=== PATIENT | male | born 1960 | race Caucasian/White ===

== ENCOUNTER → 2018-04-19 15:34 | Outpatient (CLI) | payer OTHER, SELFPAY ==
[2018-04-19 16:54] LABS: Absolute Lymphocyte Count 1.84 X10^3/ul (0.83-4.51); Absolute Neutrophil Count 4.1 X10^3/uL (2.0-7.7); Basophil# 0.03 X10^3/uL; Basophil% 0.4 % (0-1); Eosinophil# 0.35 X10^3/uL; Hematocrit 44.1 % (40-54); Hemoglobin 14.9 g/dl (13.0-16.5); Lymphocyte # 1.84 X10^3/ul (4.0); Lymphocyte % 26.4 % (19-41); Mean Corp Hgb Conc 33.8 g/gl (32-36); Mean Corpuscular Hgb 28.8 pg (27.0-32.0); Mean Corpuscular Volume 85.3 fL (80-94); Mean Platelet Vol. 10.4 fl (6.2-12.0); Monocyte# 0.55 X10^3/uL; Monocyte% 7.9 % (0-10); Neutrophil # 4.14 X10^3/uL (2.7-7.7); Neutrophil % 59.4 % (47-70); Platelet Count 271 K/mm3 (150-450); RBC Distribution Width CV 13.4 % (11.6-14.6); RBC Distribution Width SD 41.2 fl (35.1-43.9); Red Blood Count 5.17 M/mm3 (4.6-6.2)
[2018-04-19 17:04] LABS: BUN 16 mg/dL (7-18); Creatinine, Serum 1.09 mg/dL (0.70-1.30); EST Glomerular Filtration Rate 74 mL/min (>60); Glucose 97 mg/dL (74-106)
[2018-04-19 17:05] LABS: AST(SGOT) 22 U/L (15-37); Alanine Aminotransfer ALT/SGPT 37 U/L (16-61); Albumin, Serum 3.7 g/dL (3.2-5.0); Alkaline Phosphatase 97 U/L (45-117); Anion Gap 8 (5-15); BUN/Creat Ratio 14.7 RATIO (10-20); Calcium,Total 8.9 mg/dL (8.5-10.1); Chloride 103 mmol/L (98-107); Est Glom Filt Rate - Afr Amer 90 mL/min (>60); Globulin 3.7 g/dL (2.2-4.2); PSA,Total - Annual Screen 0.79 ng/mL (0.00-4.00); Potassium 3.9 mmol/L (3.5-5.1); Protein, Total 7.4 g/dL (6.4-8.2); Sodium Level 140 mmol/L (136-145); Thyroid Stim Hormone (TSH) 2.38 uIU/mL (0.358-3.74)
[2018-04-19 17:08] LABS: POSITIVE COUNT NO; POSITIVE DIFFERENTIAL NO; POSITIVE MORPHOLOGY NO
[2018-04-21 13:19] LABS: Hep C Antibodies <0.1 s/co ratio (0.0-0.9)
--- OUTSIDE RECORDS SUMMARY | 2018-06-06 00:05 | XMS RPT_ITS ---
:1960 Author Organization [facility] Care Team Providers Name Role Phone Jose Petty Chi Attending Unavailable Jose Petty Chi Primary Care Unavailable PROBLEMS PROBLEMS No Problem Records FoundPROCEDURES PROCEDURES No Procedure Records FoundRESULTS RESULTS COMPREHENSIVE METABOLIC Collected: 04/19/2018 Status: F Source: [facility] 3:35 PM [facility] REPOSITORY TYPE CODE TESTS RESULT OUT OF RANGE REFERENCE UNITS LAB L501.0100 74-106 mg/dL Normal GLU 97 Result Comment: Please note revised GLUCOSE reference range effective 2017. LAB L501.1000 7-18 mg/dL Normal BUN 16 LAB L501.1100 0.70-1.30 mg/dL Normal CREAT,SERUM 1.09 Result Comment: The validity of the calculated GFR AND GFRAA in patients over 70 years has not been determined. Clinical correlation is essential. LAB L501.1110 >60 mL/min Normal EST GFR 74 Result Comment: Non- GFR Calc LAB L501.1115 >60 mL/min Normal EST GFR - AA 90 Result Comment: GFR Calc LAB L501.1300 10-20 RATIO Normal BUN/CRE 14.7 LAB L501.1500 6.4-8.2 g/dL T Normal PROT 7.4 LAB L501.1800 3.2-5.0 g/dL Normal ALB 3.7 LAB L501.1950 2.2-4.2 g/dL Normal GLOB 3.7 LAB L501.2000 0.9-2.4 RATIO Normal A/G 1.0 LAB L501.2200 8.5-10.1 mg/dL CA Normal 8.9 LAB L501.4100 15-37 U/L Normal AST 22 LAB L501.4305 45-117 U/L Normal ALK P 97 LAB L501.4405 16-61 U/L Normal ALT 37 LAB L501.4600 0.20-1.00 mg/dL T Normal BILI 0.30 LAB L501.5300 136-145 mmol/L NA Normal 140 LAB L501.5600 3.5-5.1 mmol/L K Normal 3.9 LAB L501.5900 98-107 mmol/L CL Normal 103 LAB L501.6100 21.0-32.0 mmol/L Normal CO2 29.0 LAB L501.6200 5-15 Normal GAP 8 Performed By: #### L500.4050, L501.9520, L501.9910 #### [facility] [address] [place], [place], [id number] THYROID STIM HORMONE Collected: 04/19/2018 Status: F Source: [facility] ([facility]) 3:35 PM [facility] REPOSITORY TYPE CODE TESTS RESULT OUT OF RANGE REFERENCE UNITS LAB L501.9520 0.358-3.74 uIU/mL Normal TSH 2.38 Performed By: #### L500.4050, L501.9520, L501.9910 #### [facility] [address] [place], [place], [address] PSA,TOTAL - ANNUAL Collected: 04/19/2018 Status: F Source: [facility] SCREEN 3:35 PM [facility] REPOSITORY TYPE CODE TESTS RESULT OUT OF RANGE REFERENCE UNITS LAB L501.9910 0.00-4.00 ng/mL Normal PSA,TOT 0.79 SCREEN Result Comment: This test was performed using the TPSA assay method for the [employer] chemistry system. Values obtained with different assay methods cannot be used interchangably. When changing PSA assays in the course of monitoring a patient, additional sequential testing should be carried out to confirm baseline values. Performed By: #### L500.4050, L501.9520, L501.9910 #### [facility] [address] [place], [place], [id number] CBC W/DIFF, AUTOMATED Collected: 04/19/2018 Status: F Source: [place] 3:35 PM [facility] REPOSITORY TYPE CODE TESTS RESULT OUT OF RANGE REFERENCE UNITS LAB L100.1000 4.4-11.0 K/mm3 Normal WBC 7.0 LAB L100.1200 4.6-6.2 M/mm3 Normal RBC 5.17 LAB L100.1300 13.0-16.5 g/dl Normal HGB 14.9 LAB L100.1400 40-54 % Normal HCT 44.1 LAB L100.1500 80-94 fL Normal MCV 85.3 LAB L100.1600 27.0-32.0 pg Normal MCH 28.8 LAB L100.1700 32-36 g/gl Normal MCHC 33.8 LAB L100.1810 11.6-14.6 % Normal RDW CV 13.4 LAB L100.1820 35.1-43.9 fl Normal RDW SD 41.2 LAB L100.1900 150-450 K/mm3 Normal PLT 271 LAB L100.2000 6.2-12.0 fl Normal MPV 10.4 LAB L100.2100 47-70 % Normal NEUT% 59.4 LAB L100.2200 19-41 % Normal LY% 26.4 LAB L100.2300 0-10 % Normal MONO% 7.9 LAB L100.2400 0-5 % Normal EO% 5.0 LAB L100.2500 0-1 % Normal BASO% 0.4 LAB L100.2550 0.0-0.9 % Normal IM GRAN % 0.900 Result Comment: IG% - Immature Granulocytes (promyelocytes, myelocytes and metamyelocytes) > 1% indicates that a LEFT SHIFT is Present. LAB L100.2620 2.0-7.7 X10 3/uL Normal Absolute Neut 4.1 LAB L100.2720 0.83-4.51 X10 3/ul Normal Absolute Lymph 1.84 Performed By: #### L100.0100 #### [facility] [address] [place], [place], [id number] HEPATITIS C ANTIBODIES Collected: 04/19/2018 Status: F Source: [place] 3:35 PM [facility] REPOSITORY TYPE CODE TESTS RESULT OUT OF RANGE REFERENCE UNITS LAB L3100.0650 0.0-0.9 s/co ratio Normal HEP C AB <0.1 Result Comment: Negative: < 0.8 Indeterminate: 0.8 - 0.9 Positive: > 0.9 The CDC recommends that a positive HCV antibody result be followed up with a HCV Nucleic Acid Amplification test (344032). Performed at: - [facility] [id number] Therapeutic Mentor: Wolf Miles PhD, Phone: [phone] Performed By: #### L3100.0625 #### [facility] (refer to report for specific site) refer to report for address and phone number ALLERGIES ALLERGIES No Allergies Records FoundENCOUNTERS ENCOUNTERS ADMIT/DISCHARGE ACCOUNT ADMITTING ENCOUNTER LOCATION SOURCE NUMBER CLASS 04/19/2018 [id number] [facility] [place] [facility] [address] [place] [address] ing:POLAB3 Repository PAYERS PAYERS ENCOUNTER GUARANTOR PAYER SUBSCRIBER SOURCE 04/19/2018 CHENTE [id number] Primary CHENTE FELIZ: Talia TR Insurance:Sabiha [id number] [address], Number: [facility] [address]Ubn: [id number] Repository ve Date:1749-15-45RB [facility] [address] [address]OO: 04/19/2018 Secondary NOT GIVENUNK Talia Insurance:SELF PAY [facility] Number: Effective Repository Date:2018-04-19
== END ==
PROVIDERS: Family Provider Family Medicine Geriatric Medicine; PCP Family Medicine Geriatric Medicine; Visit Provider Family Medicine Geriatric Medicine
DX: Z00.00 Encounter for general adult medical examination without abnormal findings (principal); Z12.5 Encounter for screening for malignant neoplasm of prostate; Z13.89 Encounter for screening for other disorder
CPT/HCPCS: 36415; 80053; 84153; 84443; 85025; 86803; G0103

== ENCOUNTER 2018-10-22 21:52 | Emergency (ER) | payer OTHER, SELFPAY ==
[2018-10-22 21:53] VITALS: BP 157/91; PULSE 90; RESP 14; TEMP 36.5; O2SAT 94; BMI 26.9
--- NOTE | 2018-10-22 22:03 | ED.VISSUMM ---
- ER Visit Summary Date of Service: 10/22/18 Chief Complaint: Esophageal foreign body suspected chicken stuck in his throat History of Present Illness: The patient is a 58 M dates he was eating chicken tonight. He ate a piece said he felt fine drank a beer. He did some other things at home. He ate a second piece of chicken and he said that got stuck. He has thrown up some pieces of meat but believes it still stuck. To be drinks water it will stay down for about a minute and he throws it back up. He denies any pain. No trouble breathing. He has had a prior episode of the meat esophageal bolus that had to be previously removed. He is never needed esophageal dilatation. He denies any other illness. Physical Examination: Well-appearing middle-aged male. Vital signs are stable afebrile. HEENT exam unremarkable. Posterior pharynx normal. He is able to handle his own secretions. Neck nontender. Trachea midline. No lymphadenopathy. Lungs clear to auscultation bilaterally. Heart regular rate and rhythm no murmur. Abdomen soft and nontender. Patient is moving all 4 extremities. He is awake alert with no focal motor deficits. No distress. Test Results: None Emergency Department Course and Treatment: Patient is unable to hold water down. Dr.Rich Leon on-call for general surgery will be consulted. Patient be consciously sedated in the emergency department with propofol and Dr. Leon can do the upper endoscopy. Awaiting endoscopy team patient be turned over to the overnight physician. Treatment Plan: Patient will be observed after his upper endoscopy and once his conscious sedation is wearing off and he is doing well he will be discharged home. Disposition: Discharge Impression: Acute esophageal impaction secondary to chicken Conscious sedation by ER physician using propofol Upper endoscopy done by Dr. Leon of general surgery. This note was generated with [employer] dictation software. It may contain incorrect words, spelling, and punctuation that were not noted in review of the chart prior to signing ED Disposition - Plan for ED Patient: Disposition: Home or Assisted Living Instructions: ED Foreign Body Esophageal Rslv Referrals: Jc Leon MD [STAFF PHYSICIAN] - As Needed Jose Petty Chi, MD [Primary Care Provider] - As Needed Additional Instructions: Catch her meat up into small pieces and chew it thoroughly. : Follow-up with Dr. Leon the general surgeon from the [facility] in [place] that did your upper endoscopy tonight.
--- NOTE | 2018-10-22 22:07 | ED.DCSUM_ITS ---
- ER Visit Summary Date of Service: 10/22/18 Chief Complaint: Esophageal foreign body suspected chicken stuck in his throat History of Present Illness: The patient is a 58 M dates he was eating chicken tonight. He ate a piece said he felt fine drank a beer. He did some other things at home. He ate a second piece of chicken and he said that got stuck. He has thrown up some pieces of meat but believes it still stuck. To be drinks water it will stay down for about a minute and he throws it back up. He denies any pain. No trouble breathing. He has had a prior episode of the meat esophageal bolus that had to be previously removed. He is never needed esophageal dilatation. He denies any other illness. Physical Examination: Well-appearing middle-aged male. Vital signs are stable afebrile. HEENT exam unremarkable. Posterior pharynx normal. He is able to handle his own secretions. Neck nontender. Trachea midline. No lymphadenopathy. Lungs clear to auscultation bilaterally. Heart regular rate and rhythm no murmur. Abdomen soft and nontender. Patient is moving all 4 extremities. He is awake alert with no focal motor deficits. No distress. Test Results: None Emergency Department Course and Treatment: Patient is unable to hold water down. Dr.Rich Leon on-call for general surgery will be consulted. Patient be consciously sedated in the emergency department with propofol and Dr. Leon can do the upper endoscopy. Awaiting endoscopy team patient be turned over to the overnight physician. Treatment Plan: Patient will be observed after his upper endoscopy and once his conscious sedation is wearing off and he is doing well he will be discharged home. Disposition: Discharge Impression: Acute esophageal impaction secondary to chicken Conscious sedation by ER physician using propofol Upper endoscopy done by Dr. Leon of general surgery. This note was generated with [employer] dictation software. It may contain incorrect words, spelling, and punctuation that were not noted in review of the chart prior to signing ED Disposition - Plan for ED Patient: Disposition: Home or Assisted Living Instructions: ED Foreign Body Esophageal Rslv Referrals: Jc Leon MD [STAFF PHYSICIAN] - As Needed Jose Petty Chi, MD [Primary Care Provider] - As Needed Additional Instructions: Catch her meat up into small pieces and chew it thoroughly. : Follow-up with Dr. Leon the general surgeon from the [facility] in [place] that did your upper endoscopy tonight.
--- NOTE | 2018-10-22 22:08 | DCINST.ED_ITS ---
ED Disposition - Plan for ED Patient: Disposition: Home or Assisted Living Instructions: ED Foreign Body Esophageal Rslv Referrals: Jose Petty Chi, MD [Primary Care Provider] - As Needed Jc Leon MD [STAFF PHYSICIAN] - As Needed Additional Instructions: Catch her meat up into small pieces and chew it thoroughly. : Follow-up with Dr. Leon the general surgeon from the [place] in [place] that did your upper endoscopy tonight.
[2018-10-22 23:06] VITALS: BP 143/86; PULSE 94; RESP 14; O2SAT 98
[2018-10-22] MEDS: Propofol 200 MG/20 ML Vial 40 MG IV BOLUS (23:48)
[2018-10-22 23:52] VITALS: BP 143/84; BP 143/86; PULSE 108; PULSE 90; RESP 16; RESP 18; RESP 19; RESP 25; O2SAT 95; O2SAT 97; O2SAT 99
[2018-10-23 00:03] VITALS: BP 128/74; PULSE 89; RESP 1; O2SAT 94
--- NOTE | 2018-10-23 00:06 | OP.ENDO_ITS ---
10/23/2018 Jose Petty MD [address] [place] [address] Re : Upper GI endoscopy procedure for Efren Stevens Dear Dr. Petty This procedure was performed on Monday, October 22, 2018. My impressions and recommendations are as follows: Impressions : - Food in the lower third of the esophagus. Removal was successful. - Normal stomach. - Esophageal mucosal changes were present, including erythema. Findings are suggestive of reflux inflammation. Recommendations : - Discharge patient to home. - Continue present medications. My findings are described in the full procedure note, which is enclosed. If I can be of further assistance, please feel free to contact me at Doctor phone number(s): , Work: . Sincerely, Jc Leon MD 10/23/2018 12:05:58 AM This report has been signed electronically.
--- NOTE | 2018-10-23 00:18 | DCINST.ED_ITS ---
ED Disposition - Plan for ED Patient: Disposition: Home or Assisted Living Instructions: ED Foreign Body Esophageal Rslv Referrals: Jose Petty Chi, MD [Primary Care Provider] - As Needed Jc eLon MD [STAFF PHYSICIAN] - 1 Week Additional Instructions: Catch your meat up into small pieces and chew it thoroughly. Eat a clear liquid diet for the next 2 days. Do not eat any solid foods for the next 2 days. : Follow-up in one week with Dr. Leon, the general surgeon from the [facility] in [place] that did your upper endoscopy tonight.
[2018-10-23 00:19] VITALS: BP 116/73; O2SAT 93
[2018-10-23 00:20] VITALS: BP 116/73; PULSE 80; RESP 17; O2SAT 94
--- NOTE | 2018-10-23 09:02 | PCM.CONS.GEN ---
Reason for Consult Date of Consultation: 10/22/18 Reason for Consultation: esophageal foreign body History of Present Illness: The patient is a 58 year old M presents with a piece of chicken stuck in his throat. He's had multiple previous esophageal foreign bodies removed endoscopically. He states he has a hiatal hernia. He notes no previous history of esophageal dilatation. He does not seem to undergone endoscopy except during periods with esophageal foreign body. This esophageal foreign body and present for the past 3+ hours. He is coughing and spitting up saliva but having no respiratory difficulties. Past Medical History Allergies No Known Allergies Allergy (Verified 10/22/18 21:53) Home Medications: Ambulatory Orders Medication Instructions Recorded NK 10/22/18 Smoking Status: Never smoker Review of Systems Unable to obtain accurate/complete ROS d/t: patient discomfort - Physical Exam General: Alert, Oriented x3, Cooperative Lungs: Clear to auscultation, Normal air movement Cardiovascular: Regular rate, Regular Rhythm Abdomen: Bowel Sounds Present, Soft, Non Tender Vital Signs Temp Pulse Resp BP Pulse Ox 97.7 F L 80 17 116/73 94 10/22/18 21:53 10/23/18 00:20 10/23/18 00:20 10/23/18 00:20 10/23/18 00:20 Oxygen Delivery Method [3] Nasal Cannula Oxygen Delivery Method [1 ( Nasal Cannula Initial Baseline)] Oxygen Delivery Method Room Air Weight: 89.9 kg Body Mass Index (BMI) 26.9 Assessment/Plan after removal of esophageal foreign body-the patient was instructed to maintain on clear liquids for the next 2-3 days. He is to follow-up in my office at which point we will schedule follow-up upper endoscopy to assess for esophagitis or melena is and biopsies to evaluate for eosinophilic esophagitis.
== END 2018-10-23 00:29 | disposition home or self-care (01) ==
PROVIDERS: Surgery; Emergency Provider Emergency Medicine; Family Provider Family Medicine Geriatric Medicine; PCP Family Medicine Geriatric Medicine
PROC: 0DJ08ZZ Inspection of Upper Intestinal Tract, Via Natural or Artificial Opening Endoscopic (ICD-10-PCS; CPT 43235; principal; 2018-10-22 23:00)
DX: T18.128A Food in esophagus causing other injury, initial encounter (principal)
CPT/HCPCS: 43247; 96374; 99285; J7030; A4216

== ENCOUNTER → 2019-04-21 16:26 | Outpatient (CLI) | payer OTHER, SELFPAY ==
[2019-04-21 17:30] LABS: Absolute Lymphocyte Count 1.62 X10^3/uL (0.83-4.51); Absolute Neutrophil Count 4.6 X10^3/uL (2.0-7.7); Basophil# 0.04 X10^3/uL; Basophil% 0.6 % (0-1); Eosinophil# 0.23 X10^3/uL; Eosinophils% 3.3 % (0-5); Hematocrit 44.3 % (40-54); Hemoglobin 14.7 g/dL (13.0-16.5); Lymphocyte # 1.62 X10^3/ul (4.0); Mean Corp Hgb Conc 33.2 g/dL (32-36); Mean Corpuscular Hgb 28.8 pg (27.0-32.0); Mean Corpuscular Volume 86.7 fL (80-94); Mean Platelet Vol. 10.1 fl (6.2-12.0); Monocyte# 0.51 X10^3/uL; Monocyte% 7.2 % (0-10); NRBC Flagged by Analyzer 0 % (0-5); Neutrophil # 4.59 X10^3/uL (2.7-7.7); Platelet Count 234 K/mm3 (150-450); RBC Distribution Width CV 12.6 % (11.6-14.6); RBC Distribution Width SD 39.9 fl (35.1-43.9); Red Blood Count 5.11 M/mm3 (4.6-6.2); White Blood Count 7.1 K/mm3 (4.4-11.0)
[2019-04-21 18:20] LABS: ALB/GLOB Ratio 1.2 RATIO (0.9-2.4); AST(SGOT) 19 U/L (15-37); Alanine Aminotransfer ALT/SGPT 35 U/L (16-61); Albumin, Serum 3.8 g/dL (3.2-5.0); Alkaline Phosphatase 81 U/L (45-117); Anion Gap 5 (5-15); BUN 16 mg/dL (7-18); BUN/Creat Ratio 14.7 RATIO (10-20); Calcium,Total 8.6 mg/dL (8.5-10.1); Chloride 105 mmol/L (98-107); Creatinine, Serum 1.09 mg/dL (0.70-1.30); EST Glomerular Filtration Rate 74 mL/min (>60); Est Glom Filt Rate - Afr Amer 89 mL/min (>60); Globulin 3.2 g/dL (2.2-4.2); Glucose 80 mg/dL (74-106); PSA,Total - Annual Screen 0.89 ng/mL (0.00-4.00); Potassium 3.9 mmol/L (3.5-5.1); Sodium Level 139 mmol/L (136-145); Thyroid Stim Hormone (TSH) 1.64 uIU/mL (0.358-3.74)
[2019-04-21 18:54] LABS: Vitamin D,25 Hydroxy 19.6 ng/mL (29.95-100.01)
== END ==
PROVIDERS: Family Provider Family Medicine Geriatric Medicine; PCP Family Medicine Geriatric Medicine; Visit Provider Family Medicine Geriatric Medicine
DX: I10 Essential (primary) hypertension (principal); E55.9 Vitamin D deficiency, unspecified
CPT/HCPCS: 36415; 80053; 82306; 84153; 84443; 85025; G0103

== ENCOUNTER → 2020-04-30 15:31 | Outpatient (CLI) | payer OTHER, SELFPAY ==
[2020-04-30 17:19] LABS: Absolute Lymphocyte Count 1.74 X10^3/uL (0.83-4.51); Absolute Neutrophil Count 5.5 X10^3/uL (2.0-7.7); Basophil# 0.03 X10^3/uL; Basophil% 0.4 % (0-1); Eosinophil# 0.17 X10^3/uL; Eosinophils% 2.1 % (0-5); Hematocrit 46.8 % (40-54); Hemoglobin 15.5 g/dL (13.0-16.5); Lymphocyte # 1.74 X10^3/ul (4.0); Lymphocyte % 21.7 % (19-41); Mean Corp Hgb Conc 33.1 g/dL (32-36); Mean Corpuscular Hgb 28.8 pg (27.0-32.0); Mean Corpuscular Volume 86.8 fL (80-94); Mean Platelet Vol. 10.2 fl (6.2-12.0); Monocyte# 0.55 X10^3/uL; Monocyte% 6.8 % (0-10); NRBC Flagged by Analyzer 0 % (0-5); Neutrophil # 5.48 X10^3/uL (2.7-7.7); Neutrophil % 68.3 % (47-70); Platelet Count 261 K/mm3 (150-450); RBC Distribution Width CV 12.5 % (11.6-14.6); RBC Distribution Width SD 39.7 fl (35.1-43.9); Red Blood Count 5.39 M/mm3 (4.6-6.2)
[2020-04-30 17:45] LABS: ALB/GLOB Ratio 1.2 RATIO (0.9-2.4); AST(SGOT) 20 U/L (15-37); Alanine Aminotransfer ALT/SGPT 32 U/L (16-61); Albumin, Serum 4.1 g/dL (3.2-5.0); Alkaline Phosphatase 77 U/L (45-117); Anion Gap 9 (5-15); BUN 17 mg/dL (7-18); Calcium,Total 9.3 mg/dL (8.5-10.1); Chloride 104 mmol/L (98-107); Creatinine, Serum 1.13 mg/dL (0.70-1.30); EST Glomerular Filtration Rate 71 mL/min (>60); Est Glom Filt Rate - Afr Amer 85 mL/min (>60); Globulin 3.3 g/dL (2.2-4.2); Glucose 83 mg/dL (74-106); PSA,Total - Annual Screen 1.46 ng/mL (0.00-4.00); Potassium 4.2 mmol/L (3.5-5.1); Protein, Total 7.4 g/dL (6.4-8.2); Sodium Level 140 mmol/L (136-145); Thyroid Stim Hormone (TSH) 3.35 uIU/mL (0.358-3.74)
== END ==
PROVIDERS: PCP Family Medicine Geriatric Medicine; Visit Provider Family Medicine Geriatric Medicine
DX: I10 Essential (primary) hypertension (principal); Z12.5 Encounter for screening for malignant neoplasm of prostate
CPT/HCPCS: 36415; 80053; 84153; 84443; 85025; G0103

== ENCOUNTER → 2021-05-02 15:21 | Outpatient (CLI) | payer OTHER, SELFPAY ==
[2021-05-02 16:10] LABS: Absolute Lymphocyte Count 1.49 X10^3/uL (0.83-4.51); Basophil# 0.03 X10^3/uL; Basophil% 0.4 % (0-1); Eosinophil# 0.24 X10^3/uL; Eosinophils% 2.9 % (0-5); Hematocrit 45.2 % (40-54); Hemoglobin 15.6 g/dL (13.0-16.5); Lymphocyte # 1.49 X10^3/ul (0.83-4.51); Lymphocyte % 18.1 % (19-41); Mean Corp Hgb Conc 34.5 g/dL (32-36); Mean Corpuscular Hgb 29.4 pg (27.0-32.0); Mean Corpuscular Volume 85.3 fL (80-94); Mean Platelet Vol. 10.1 fl (6.2-12.0); Monocyte# 0.46 X10^3/uL; Monocyte% 5.6 % (0-10); NRBC Flagged by Analyzer 0 % (0-5); Neutrophil # 5.96 X10^3/uL (2.7-7.7); Neutrophil % 72.4 % (47-70); Platelet Count 244 K/mm3 (150-450); RBC Distribution Width CV 12.6 % (11.6-14.6); RBC Distribution Width SD 39.1 fl (35.1-43.9); White Blood Count 8.2 K/mm3 (4.4-11.0)
[2021-05-02 16:40] LABS: ALB/GLOB Ratio 1.1 RATIO (0.9-2.4); AST(SGOT) 17 U/L (15-37); Alanine Aminotransfer ALT/SGPT 37 U/L (16-61); Albumin, Serum 3.9 g/dL (3.2-5.0); Alkaline Phosphatase 90 U/L (45-117); Anion Gap 11 (5-15); BUN 16 mg/dL (7-18); BUN/Creat Ratio 14.5 RATIO (10-20); Calcium,Total 8.7 mg/dL (8.5-10.1); Chloride 102 mmol/L (98-107); EST Glomerular Filtration Rate 73 mL/min (>60); Est Glom Filt Rate - Afr Amer 88 mL/min (>60); Globulin 3.5 g/dL (2.2-4.2); Glucose 106 mg/dL (74-106); PSA,Total - Annual Screen 1.19 ng/mL (0.00-4.00); Potassium 3.6 mmol/L (3.5-5.1); Protein, Total 7.4 g/dL (6.4-8.2); Sodium Level 141 mmol/L (136-145); Thyroid Stim Hormone (TSH) 1.57 uIU/mL (0.358-3.74)
== END ==
PROVIDERS: PCP Family Medicine Geriatric Medicine; Visit Provider Family Medicine Geriatric Medicine
DX: Z00.00 Encounter for general adult medical examination without abnormal findings (principal); I10 Essential (primary) hypertension; Z12.5 Encounter for screening for malignant neoplasm of prostate
CPT/HCPCS: 36415; 80053; 84153; 84443; 85025; G0103

== ENCOUNTER 2021-09-22 13:06 | Emergency (ER) | payer OTHER, SELFPAY ==
[2021-09-22 13:08] VITALS: BP 161/84; PULSE 98; RESP 18; TEMP 36.6; O2SAT 97; BMI 27.1
--- NOTE | 2021-09-22 13:27 | ED.VIS.GI ---
HPI HPI - GI History of Present Illness Chief Complaint: Foreign Body Narrative Narrative: 61-year-old male who denies significant past medical history except for previous esophageal foreign bodies, presents with a feeling that food is stuck in his distal esophagus. It has been that way for the last 3 hours. He states that he went to visit his in a half-way, went to [employer], then drove through [employer] and was in a hurry, and feels like part of his sausage McMuffin is caught in his distal esophagus. He states this is happened to him previously, the last time being 3 to 4 months ago with resolution by itself. 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 While he denies that he had any esophageal stricture or esophageal web, he thought that they had diagnosed him with esophagitis. He presents because he states whenever he drinks a capful of water, it comes back up. PFSH PFSH Medical History no medical history Home Medications NK 10/22/18 [History Last Taken Unknown] Allergy/AdvReac Type Severity Reaction Status Date / Time No Known Allergies Allergy Verified 09/22/21 13:09 Social History Smoking Status: Never smoker ROS ROS ED ROS Narrative Constitutional: No fever, no chills. HEENT: No sore throat. No neck pain. No loss of vision. No rhinorrhea. Esophageal foreign body, distal, feeling of food impaction. Cardiovascular: No chest pain. No palpitations. No pedal edema. Respiratory: No cough, no shortness of breath. Abdominal: No abdominal pain. No nausea. No vomiting. Genitourinary: No dysuria. No hematuria. Musculoskeletal: No myalgias. No arthralgias. Neurologic: No headaches. No dizziness. No lightheadedness. Skin: No rash. No change in color. Psychiatric: No depression. No anxiety. EXAM Physical Exam Narrative Exam Narrative: Afebrile. Vital signs noted. HEENT: Normocephalic. Atraumatic. PERRL, EOMI. Neck soft and supple. No point tenderness or step off. Airway patent. No drooling or trismus. Cardiovascular: Regular rate and rhythm. No murmurs, rubs, or gallops appreciated. Respiratory: No tachypnea. Lungs clear to auscultation bilaterally. Gastrointestinal: Abdomen soft, nontender, with normoactive bowel sounds. No rebound or guarding. Neurological: Awake. Alert. Nonfocal, nonlateralizing. Skin: No rash. Normal color. No pallor. Musculoskeletal: No pedal edema. Full range of motion extremities. Const Vital Signs: 09/22/21 13:08 09/22/21 13:15 Temperature 98 F Temperature Source Temporal Pulse Rate 98 Respiratory Rate 18 Respiratory Effort Normal Non-Labored Blood Pressure 161/84 H Blood Pressure Mean 109 Pulse Ox 97 Oxygen Delivery Method Room Air MDM MDM MDM Narrative Medical decision making narrative: Upon initial history and physical taking, patient states that his foreign body sensation has resolved. He was able to drink half a bottle of water at the bedside, with an additional cup. As he states that this is happening every 3 to 4 months, usually when he does not chew as well, he was instructed to start a soft food diet and advance as tolerated and to always chew his food thoroughly. He was given the number to Dr. Harrison excellence consultant for gastroenterology for outpatient endoscopy. At this point in time, as his foreign body of the esophagus has resolved, I feel he can be discharged safely home. Return instructions reviewed. Disposition is discharged home in stable condition. Discharge Plan Triage Chief Complaint: Foreign Body ED Provider: Matthew Peguero Dx/Rx/DC Orders Clinical Impression: Foreign body in esophagus, Dysphagia Instructions: ED Soft Diet, ED Esophageal Foreign Body, Resolved, ED Dysphagia (Adult) Prescriptions: No Action NK RF: 0 Primary Care Provider: Jose Petty Chi Referrals: Figueroa Harrison DO [STAFF PHYSICIAN] - As soon as possible Jose Petty Chi, MD [Primary Care Provider] - Disposition Disposition: Home, Self Care
== END 2021-09-22 13:45 | disposition home or self-care (01) ==
PROVIDERS: Emergency Provider Emergency Medicine; PCP Family Medicine Geriatric Medicine; Visit Provider Emergency Medicine
DX: T18.108A Unspecified foreign body in esophagus causing other injury, initial encounter (principal); R13.10 Dysphagia, unspecified
CPT/HCPCS: 99282

== ENCOUNTER → 2022-05-07 | Outpatient (CLI) | payer OTHER, SELFPAY ==
[2022-05-07 17:29] LABS: Absolute Lymphocyte Count 1.43 X10^3/uL (0.83-4.51); Absolute Neutrophil Count 3.1 X10^3/uL (2.0-7.7); Basophil# 0.03 X10^3/uL; Basophil% 0.5 % (0-1); Eosinophil# 0.15 X10^3/uL; Eosinophils% 2.7 % (0-5); Hemoglobin 15.2 g/dL (13.0-16.5); Lymphocyte # 1.43 X10^3/ul (0.83-4.51); Lymphocyte % 25.8 % (19-41); Mean Corp Hgb Conc 34.5 g/dL (32-36); Mean Corpuscular Hgb 29.8 pg (27.0-32.0); Mean Corpuscular Volume 86.3 fL (80-94); Monocyte# 0.78 X10^3/uL; Monocyte% 14.1 % (0-10); NRBC Flagged by Analyzer 0 % (0-5); Neutrophil # 3.14 X10^3/uL (2.7-7.7); Neutrophil % 56.5 % (47-70); Platelet Count 210 K/mm3 (150-450); RBC Distribution Width CV 12.8 % (11.6-14.6); RBC Distribution Width SD 40.2 fl (35.1-43.9); White Blood Count 5.6 K/mm3 (4.4-11.0)
[2022-05-07 17:51] LABS: Vitamin D,25 Hydroxy 26.4 ng/mL
[2022-05-07 18:01] LABS: AST(SGOT) 20 U/L (15-37); Alanine Aminotransfer ALT/SGPT 43 U/L (16-61); Albumin, Serum 3.6 g/dL (3.2-5.0); Alkaline Phosphatase 76 U/L (45-117); Anion Gap 4 (5-15); BUN 12 mg/dL (7-18); BUN/Creat Ratio 10.7 RATIO (10-20); Calcium,Total 8.7 mg/dL (8.5-10.1); Chloride 103 mmol/L (98-107); Creatinine, Serum 1.12 mg/dL (0.70-1.30); EST Glomerular Filtration Rate 71 mL/min (>60); Est Glom Filt Rate - Afr Amer 86 mL/min (>60); Globulin 3.5 g/dL (2.2-4.2); Glucose 92 mg/dL (74-106); Potassium 4.1 mmol/L (3.5-5.1); Protein, Total 7.1 g/dL (6.4-8.2); Sodium Level 137 mmol/L (136-145); Thyroid Stim Hormone (TSH) 2.53 uIU/mL (0.358-3.74)
== END | disposition home or self-care (01) ==
LOC: POLAB3 15:43
PROVIDERS: PCP Family Medicine Geriatric Medicine; Visit Provider Family Medicine Geriatric Medicine
DX: Z00.00 Encounter for general adult medical examination without abnormal findings (principal)
CPT/HCPCS: 36415; 80053; 82306; 84153; 84443; 85025; G0103

== ENCOUNTER → 2022-05-09 | Outpatient (CLI) | payer OTHER, SELFPAY | END | disposition home or self-care (01) | PROVIDERS: PCP Family Medicine Geriatric Medicine; Visit Provider Family Medicine Geriatric Medicine | DX: U07.1 COVID-19 (principal) | CPT/HCPCS: 87635; 87804; 87807; C9803; U0003; U0005 ==

== ENCOUNTER 2023-02-20 00:53 | Day surgery (SDC) | payer OTHER, SELFPAY ==
[2023-02-20] VITALS (13 sets, daily range): BP systolic 124–141; BP diastolic 71–92; PULSE 64–82; RESP 13–18; TEMP 36.3–36.8; O2SAT 94–100; BMI 26.6
--- NOTE | 2023-02-20 | ESO_PTH ---
PATIENT: CHENTE GOMES LOC: EN U#:[id number] AGE/SX: 62/M ROOM: RE02/20/[address]: Dr. Figueroa Harrison DO : 1960 BED: DIS: 02/20/2023 SPEC #: [id number] RECD: 02/20/23 13:45 STATUS: JOB JANETTE #: [id number] BRIGITTE: 02/20/23 00:[address]: Figueroa Harrison DEPT: SURGICAL PATHOLOGY RECD BY: Jamar Christianson ENTERED: 02/20/23 13:45 SP TYPE: JF SYED DR: Dr. Jose Petty MD Tissues: Esophagus, NOS Procedures: Special Stain Group II Surgery Specimen Level IV Alcian Blue/PAS (control) HEADER OPERATION: EGD and biopsy, dilation PRE-OP DIAGNOSIS: Foreign body TISSUE SUBMITTED: Distal esophagus biopsy MICROSCOPIC DIAGNOSIS Distal esophagus, biopsy: Fragments of gastroesophageal mucosa with chronic inflammation. Intestinal metaplasia (goblet cell metaplasia) is not identified. Eosinophilic esophagitis. See comment. SJ:taylor 02/23/2023 COMMENT Alcian blue/PAS stain with matched control is used in the evaluation of the specimen. Increased number of eosinophils (>20 per high power field) are noted consistent with eosinophilic esophagitis. The specimen predominantly consists of squamous mucosa. Correlation with clinical and endoscopic findings and appropriate follow up are necessary. MICROSCOPIC DESCRIPTION Slides are reviewed. GROSS DESCRIPTION Received in fixative is one container labeled with the patient's name and designated distal esophagus. The specimen consists of multiple irregular fragments of light millan soft tissue that in aggregate measure 1.5 x 1.0 x 0.1 cm. The specimen is totally submitted in one cassette. / AM:taylor 02/20/2023 TC:3 CPT: 87778, 70242
[2023-02-20] MEDS: Glucagon 1 MG/ML Syringe IM (01:51)
--- NOTE | 2023-02-20 02:08 | EX.ED.DYSGE1 ---
HPI History of Present Illness Chief Complaint: Foreign Body Informant: patient Narrative Narrative: Patient presents for-5 hours after eating a hot dog and feeling like part of it got stuck in his esophagus. No shortness of breath or choking associated with this, happened as it was going down after he swallowed it. He has been trying to drink cola and intermittently vomiting every time she tries to drink. He points to the lower substernal. States he has had this happen before, he has had an EGD in the past but no stretching. He denies vomiting any blood he takes no anticoagulants. Other than omeprazole that he takes inconsistently he has no other prescription medications. [facility] Medical History GERD (gastroesophageal reflux disease) Home Medications omeprazole 40 mg capsule,delayed release 40 mg PO DAILY 02/20/23 [History Last Taken Unknown] Allergy/AdvReac Type Severity Reaction Status Date / Time No Known Allergies Allergy Verified 02/20/23 00:56 Social History Smoking Status: Never smoker ROS ROS ED Constitutional Constitutional ED: Denies chills or fever(s) Eyes Eyes: Denies change in vision or diplopia ENT ENT ED: Denies rhinorrhea or sore throat Cardiovascular Cardiovascular: Denies chest pain or palpitations Respiratory/Chest Respiratory/Chest: Denies cough or dyspnea Gastrointestinal Gastrointestinal: Reports as per HPI and vomiting; Denies abdominal pain, diarrhea or nausea Genitourinary Genitourinary ED: Denies dysuria or hematuria Musculoskeletal Musculoskeletal: Denies back pain or neck pain Integumentary Denies abscess or rash Neurologic Neurologic: Denies headache(s), paresthesias or weakness Psychiatric Psychiatric: Denies anxiety or suicidal thoughts EXAM Physical Exam Const Vital Signs: 02/20/23 00:54 02/20/23 01:16 02/20/23 02:56 Temperature 98.2 F Temperature Source Temporal Pulse Rate 82 74 Respiratory Rate 17 13 Respiratory Effort Short of Breath Blood Pressure 141/91 H 131/81 H Blood Pressure Mean 107 97 Pulse Ox 98 94 Oxygen Delivery Method Room Air Room Air Positive well nourished and well developed General Appearance ED: well developed and NAD HEENT Reports moist mucous membranes normocephalic and atraumatic Eyes PERRL and EOMs intact bilaterally Neck full ROM and supple Resp normal respiratory effort and clear to auscultation bilaterally Cardio regular rate, regular rhythm and no murmurs GI non-tender and non-distended Auscultation: normoactive bowel sounds Palpation: soft Back/Spine no CVA tenderness General Back: other FROM Extremity normal to inspection General Extremety ED: Negative for edema, pulses abnormal or tenderness General Extremity: Negative for edema or pulses abnormal Neuro oriented x3, CN's II-XII intact bilaterally and no sensory deficits noted Sensorium / Orientation: awake and alert Motor Exam: strength 5/5 throughout Skin no rashes or lesions noted and no wounds MDM MDM MDM Narrative Medical decision making narrative: Patient was given 1 mg of glucagon IM. 45 minutes later, I had him drink some fresh carbonated cola, attempted do a maneuver to increase carbonation, however after 2 attempts this resulted in episodes of vomiting and without resolution of the obstruction. As long as patient does not drink he is clinically stable and comfortable relatively. Therefore discussed with GI. Given the hour, and the time it would take endoscopy to arrive emergently as well as the fact that if the patient is not drinking he is comfortable and able to rest and sleep, we are going to wait a couple more hours and have GI and endoscopy take him to the endoscopy unit first thing in the morning for food bolus removal and further evaluation. Patient is comfortable with that plan. He will be observed here until he goes to endoscopy, and in the meantime he is maintained n.p.o. and given IV fluids. Discharge Plan Triage Chief Complaint: Foreign Body ED Provider: Thiago Garza Dx/Rx/DC Orders Clinical Impression: Food impaction of esophagus Instructions: ED Esophageal Foreign Body, Resolved Prescriptions: Continued omeprazole 40 mg capsule,delayed release(DR/EC) 40 mg PO DAILY Primary Care Provider: Jose Petty Chi Referrals: Figueroa Harrison DO [Med Staff - Active Staff] - (as directed) Jose Petty Chi, MD [Primary Care Provider] - Disposition Disposition: Home, Self Care
[2023-02-20] MEDS: 0.9% Normal Saline (1000mL) 1,000 ML 200 ML IV (02:56)
[2023-02-20] MEDS: Lactated Ringers 1,000 ML 15 ML IV (06:40)
--- NOTE | 2023-02-20 06:44 | HP.PCM_ITS ---
HPI - General General Date of Admission: 02/20/23 Date of Service: 02/20/23 Chief Complaint: Food impaction HPI Narrative CHENTE GOMES, is a 62 M who presents after eating a hot dog and feeling like part of it got stuck in his esophagus. No shortness of breath or choking associated with this, happened as it was going down after he swallowed it. He has been trying to drink cola and intermittently vomiting every time she tries to drink. He points to the lower substernal. States he has had this happen before, he has had an EGD in 2019 in the past but no dilation. He denies vomiting any blood he takes no anticoagulants. Other than omeprazole that he takes inconsistently he has no other prescription medications. [facility] Medical History GERD (gastroesophageal reflux disease) Home Medications omeprazole 40 mg capsule,delayed release 40 mg PO DAILY 02/20/23 [History Last Taken Unknown] Allergy/AdvReac Type Severity Reaction Status Date / Time No Known Allergies Allergy Verified 02/20/23 00:56 Social History Smoking Status: Never smoker ROS Review of Systems ROS Unobtainable: other Constitutional Constitutional: Denies fatigue, fever(s), poor appetite, weight gain or weight loss ENT HEENT: Denies mouth lesions Cardiovascular Cardiovascular: Denies abdominal bloating, abdominal edema or abdominal pain Respiratory/Chest Respiratory/Chest: Denies change in mental status, change in phlegm color, chest congestion or chest tightness Gastrointestinal Gastrointestinal: Denies belching, bloating, change in bowel habits, change in stool character, chewing difficulty, coffee ground emesis, constipation, cramping, diarrhea, dyspepsia, dysphagia, early satiety, excessive flatus, fecal incontinence, heartburn, hematemesis, hematochezia, hemorrhoids, loose stools, melena, nausea, odynophagia, rectal bleeding, tenesmus, vomiting or weight changes Genitourinary Genitourinary: Denies abdominal discomfort, burning urination or itching Musculoskeletal Musculoskeletal: Reports as per HPI; Denies muscle weakness or myalgias Integumentary Integumentary: Denies jaundice Neurologic Neurologic: Denies lack of coordination or weakness Psychiatric Psychiatric: Denies confusion, depression, memory loss, mood swings, paranoia or suicidal ideation Endocrine Endocrinology: Denies systems reviewed and no addt'l complaints, except as documented Hematologic/Lymphatic Hematologic/Lymphatic: Denies anemia, easy bleeding, easy bruising or lymphadenopathy Allergic/Immunologic Allergic/Immunologic: Denies systems reviewed and no addt'l complaints, except as documented Vital Signs Vital Signs Vital Signs: 02/20/23 00:54 02/20/23 01:16 02/20/23 02:56 Temperature 98.2 F Temperature Source Temporal Pulse Rate 82 74 Respiratory Rate 17 13 Respiratory Effort Short of Breath Blood Pressure 141/91 H 131/81 H Blood Pressure Mean 107 97 Pulse Ox 98 94 Oxygen Delivery Method Room Air Room Air 02/20/23 03:00 02/20/23 04:00 02/20/23 05:00 Temperature Temperature Source Pulse Rate 65 68 68 Respiratory Rate 16 16 16 Respiratory Effort Blood Pressure 134/82 H 130/86 H 131/82 H Blood Pressure Mean 99 100 98 Pulse Ox 99 99 99 Oxygen Delivery Method 02/20/23 06:00 02/20/23 06:28 Temperature Temperature Source Pulse Rate 65 68 Respiratory Rate 16 16 Respiratory Effort Blood Pressure 124/71 H 124/71 H Blood Pressure Mean 88 88 Pulse Ox 99 99 Oxygen Delivery Method Weight Weight: 196 lb 3.382 oz Body Mass Index (BMI) 26.6 Physical Exam Const alert, oriented x3, no apparent distress, healthy appearing and well nourished General Appearance: cooperative, comfortable, well kempt and well developed Orientation / Consciousness: awake and oriented to person HEENT Head and Scalp: normocephalic and atraumatic Face and Sinus: normal facial exam Mouth: oral and palatal mucosa normal Eyes General Eye: normal appearance of both eyes Neck full ROM Lymph Lymphatic: no lymphadenopathy noted Chest inspection of chest normal Resp normal respiratory effort and no use of accessory muscles Cardio regular rate and regular rhythm GI normal to inspection, nondistended, normoactive bowel sounds, soft to palpation, non-tender, non-distended and no masses Auscultation: normoactive bowel sounds Palpation: soft Percussion: normal to percussion Rectal Exam: visual inspection normal and normal sphincter tone no CVA tenderness Back/Spine no CVA tenderness and normal ROM Extremity normal to inspection Peripheral Pulses: Yes pulses 2+ throughout Skin no rashes or lesions noted General Skin Exam: no breakdown, elasticity normal and turgor normal Neuro oriented x3 Motor Exam: strength 5/5 throughout Psych mental status grossly normal Appearance: grossly normal Attitude: calm Activity / Motor Behavior: appropriate eye contact Speech: normal speech Thought Process: normal thought process Thought Content: normal thought content Attention / Concentration: attention grossly intact Memory / Cognition: memory grossly intact Insight: insight good Judgement: judgement good Assessment & Plan Assessment/Plan (1) Food impaction of esophagus: QUALIFIERS: Encounter type: initial encounter Qualified Code(s): T18.128A - Food in esophagus causing other injury, initial encounter; [id number].F3XA - Food entering into or through a natural orifice, initial encounter PLAN: He will undergo removal of esophageal food impaction. He was explained alternatives, risk, benefits include not withstanding bleeding, infection, sepsis, perforation, need for emergent surgery . He will have an ASA of 2.
--- NOTE | 2023-02-20 07:07 | OP.EGD_ITS ---
Patient Name: Efren Stevens Procedure Date: 02/20/2023 6:40 AM Date of : 1960 Age: 62 Procedure: Upper GI endoscopy Indications: Dysphagia Providers: Figueroa Harrison DO Referring MD: Figueroa Harrison DO Medicines: Monitored Anesthesia Care Patient Profile: This is a 62 year old male. Refer to note in patient chart for documentation of history and physical. Patient has symptoms of acute dysphagia. Complications: No immediate complications. Procedure: Pre-Anesthesia Assessment: - Prior to the procedure, a History and Physical was performed, and patient medications and allergies were reviewed. The patient is competent. The risks and benefits of the procedure and the sedation options and risks were discussed with the patient. All questions were answered and informed consent was obtained. Patient identification and proposed procedure were verified by the physician in the pre-procedure area. Mental Status Examination: alert and oriented. Airway Examination: normal oropharyngeal airway and neck mobility. Respiratory Examination: clear to auscultation. CV Examination: normal. Prophylactic Antibiotics: The patient does not require prophylactic antibiotics. Prior Anticoagulants: The patient has taken no anticoagulant or antiplatelet agents. ASA Grade Assessment: II - A patient with mild systemic disease. After reviewing the risks and benefits, the patient was deemed in satisfactory condition to undergo the procedure. The anesthesia plan was to use monitored anesthesia care (MAC). Immediately prior to administration of medications, the patient was re-assessed for adequacy to receive sedatives. The heart rate, respiratory rate, oxygen saturations, blood pressure, adequacy of pulmonary ventilation, and response to care were monitored throughout the procedure. The physical status of the patient was re-assessed after the procedure. After obtaining informed consent, the endoscope was passed under direct vision. Throughout the procedure, the patient's blood pressure, pulse, and oxygen saturations were monitored continuously. The gastroscope was introduced through the mouth, and advanced to the second part of duodenum. The upper GI endoscopy was accomplished without difficulty. The patient tolerated the procedure well. Scope In: 6:51:57 AM Scope Out: 6:57:42 AM Total Procedure Duration Time 0 hours 5 minutes 45 seconds Findings: Mucosal changes including ringed esophagus, feline appearance, longitudinal furrows, small-caliber esophagus, white plaques, circumferential folds, congestion (edema) and crepe paper esophagus were found in the middle third of the esophagus and in the lower third of the esophagus. Esophageal findings were graded using the Eosinophilic Esophagitis Endoscopic Reference Score (EoE-EREFS) as: Edema Grade 1 Present (decreased clarity or absence of vascular markings), Rings Grade 2 Moderate (distinct rings that do not occlude passage of diagnostic 8-10 mm endoscope), Exudates Grade 2 Severe (scattered white lesions involving 10 percent or greater of the esophageal surface area) and Furrows Grade 1 Mild (vertical lines without visible depth). Biopsies were obtained from the proximal and distal esophagus with cold forceps for histology of suspected eosinophilic esophagitis. Verification of patient identification for the specimen was done. Estimated blood loss was minimal. Food was found in the lower third of the esophagus. Removal was accomplished with a Stover net. Verification of patient identification for the specimen was done. Estimated blood loss was minimal. A moderate Schatzki ring was found at the gastroesophageal junction. A guidewire was placed and the scope was withdrawn. Dilation was performed with a Savary dilator with no resistance at 51 Fr. The dilation site was examined and showed moderate mucosal disruption. Estimated blood loss was minimal. A small hiatal hernia was present. The entire examined stomach was normal. No gross lesions were noted in the duodenal bulb. Impression: - Esophageal mucosal changes consistent with eosinophilic esophagitis. - Food in the lower third of the esophagus. Removal was successful. - Moderate Schatzki ring. Dilated. - Small hiatal hernia. - Normal stomach. - No gross lesions in the duodenal bulb. - Biopsies were taken with a cold forceps for evaluation of eosinophilic esophagitis. Recommendation: - Discharge patient to home. - Full liquid diet. - Use Prilosec (omeprazole) 40 mg PO BID for 12 weeks. - Continue present medications. Procedure Code(s): --- Professional --- 40852, Esophagogastroduodenoscopy, flexible, transoral; with removal of foreign body(s) 12023, 51, Esophagogastroduodenoscopy, flexible, transoral; with insertion of guide wire followed by passage of dilator(s) through esophagus over guide wire 75666, 59, Esophagogastroduodenoscopy, flexible, transoral; with biopsy, single or multiple CPT copyright 2021 [employer]. All rights reserved. The codes documented in this report are preliminary and upon consulting practice director review may be revised to meet current compliance requirements. Figueroa Harrison DO 02/20/2023 7:06:51 AM This report has been signed electronically. Number of Addenda: 0 Note Initiated On: 02/20/2023 6:40 AM
--- NOTE | 2023-02-20 07:08 | OP.CCLET_ITS ---
02/20/2023 Jose Petty MD [address] [place] [address] Re : Upper GI endoscopy procedure for Efren Hilda Dear Dr. Petty This procedure was performed on Monday, February 20, 2023. My impressions and recommendations are as follows: Impressions : - Esophageal mucosal changes consistent with eosinophilic esophagitis. - Food in the lower third of the esophagus. Removal was successful. - Moderate Schatzki ring. Dilated. - Small hiatal hernia. - Normal stomach. - No gross lesions in the duodenal bulb. - Biopsies were taken with a cold forceps for evaluation of eosinophilic esophagitis. Recommendations : - Discharge patient to home. - Full liquid diet. - Use Prilosec (omeprazole) 40 mg PO BID for 12 weeks. - Continue present medications. My findings are described in the full procedure note, which is enclosed. If I can be of further assistance, please feel free to contact me at . Sincerely, Figueroa Harrison, 02/20/2023 7:06:51 AM This report has been signed electronically.
[2023-02-20] MEDS: Pantoprazole Sodium 80 MG in 0.9% Normal Saline (100mL MB+) 100 ML 330 MG IV (07:27)
== END 2023-02-20 08:13 | disposition home or self-care (01) ==
LOC: ED 03:35 → EN 06:19 → ACINP 06:20 → AC 07:58
PROVIDERS: Emergency Provider Emergency Medicine; PCP Family Medicine Geriatric Medicine; Referring Provider Internal Medicine Gastroenterology; Visit Provider Internal Medicine Gastroenterology
PROC: 0DJ08ZZ Inspection of Upper Intestinal Tract, Via Natural or Artificial Opening Endoscopic (ICD-10-PCS; CPT 43235; principal; 2023-02-20 06:55)
DX: T18.128A Food in esophagus causing other injury, initial encounter (principal); K44.9 Diaphragmatic hernia without obstruction or gangrene; Z79.899 Other long term (current) drug therapy; K22.2 Esophageal obstruction; K20.0 Eosinophilic esophagitis
CPT/HCPCS: 43247; 43239; 43248; 88305; 88313; 99284; J7030; J7120; A4216; C1769; J2405

== ENCOUNTER → 2023-05-13 | Outpatient (CLI) | payer OTHER, SELFPAY ==
--- OUTSIDE RECORDS SUMMARY | 2023-05-13 15:59 | XMS RPT_ITS | CCD ---
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 Name Role Phone Andreina Dean Unavailable Unavailable Andreina Dean Unavailable Unavailable Problems Problem Classification Problem Date Documented Da te Episodic/Chronic Other inflammatory condition of skin (2 sources) Pruritus, unspecified; Translations: [Pruritus, unspecified] Onset: 01-08-2017 Episodic Results Test Name Value Interpretation Reference Range Facil ity Encounters Encounter Date Encounter Type Care Provider Facility Start: 01-08-2017 Ambulatory Andreina Dean [facility] Payers Date Payer Category Payer Policy ID Self-pay Summary Purpose Family History No Family History Records FoundNo Family History Records Found Advance Directives No Advanced Directives Records FoundNo Advanced Directives Records Found Procedure Findings Note Operative Note (Enc) (GENSWS ) Progress Notes: Jermaine Meehan MD 10/23/2018 9:10 AM Signed OPERATIVE NOTATION FOR [facility] SURGICAL PROCEDURE. October 22, 2018 Efren Gomes 1960 [id number] male PROCEDURE: EGD WITH REMOVAL OF FOREIGN BODY - 07245- SURGEON: Arnoldo Meehan M.D. FACS PROTECTION ENGINEER: None DEPT: [facility] PROVIDER: [id number] Meehan MD POS: [id number] ROOM DIAGNOSIS: (T18.108A) Esophageal foreign body, initial encounter (primary encounter diagnosis) ASA CLASS: 2E - mild emergency FINDINGS: COMPLICATIONS: None PMHx - No past medical history on file. COMORBIDITIES - Chronic Alcohol Abuse Post Op Occurrences - None Wound Classification - Clean Contaminated Operative note dictated in the [facility] dictation system. Jermaine Meehan MD Encounter Status:Closed by JERMAINE MEEHAN MD on 10/23/18 Additional Source Comments (unrecognized sect ion and content) No Status Records FoundNo Status Records Found INFORMATION SOURCE (unrecogn ized section and content) DATE CREATED AUTHOR AUTHOR'S ORGANIZ ATION 10/23/2018 [facility] FOR RECORDS PERTAINING TO PATIENTS WHO ARE OR HAVE BEEN ENROLLED IN A CHEMICAL DEPENDENCY/SUBSTANCEABUSE PROGRAM, SOME INFORMATION MAY BE OMITTED. This clinical summary was aggregated from multiple sources. Caution should be exercised in using it in the provision of clinical care. This summary normalizes information from multiple sources, and as a consequence, information in this document may materially change the coding, format and clinical context of patient data. In addition, data may be omitted in some cases. CLINICAL DECISIONS SHOULD BE BASED ON THE PRIMARY CLINICAL RECORDS. [employer] provides no warranty or guarantee of the accuracy or completeness of information in this document.
[2023-05-13 17:37] LABS: Absolute Lymphocyte Count 1.77 X10^3/uL (0.83-4.51); Absolute Neutrophil Count 5.6 X10^3/uL (2.0-7.7); Basophil# 0.03 X10^3/uL; Basophil% 0.4 % (0-1); Eosinophil# 0.21 X10^3/uL; Eosinophils% 2.5 % (0-5); Hematocrit 46.1 % (40-54); Hemoglobin 15.1 g/dL (13.0-16.5); Lymphocyte # 1.77 X10^3/ul (0.83-4.51); Lymphocyte % 21.5 % (19-41); Mean Corp Hgb Conc 32.8 g/dL (32-36); Mean Corpuscular Hgb 28.4 pg (27.0-32.0); Mean Corpuscular Volume 86.8 fL (80-94); Mean Platelet Vol. 9.7 fl (6.2-12.0); Monocyte# 0.57 X10^3/uL; Monocyte% 6.9 % (0-10); NRBC Flagged by Analyzer 0 % (0-5); Neutrophil # 5.61 X10^3/uL (2.7-7.7); Neutrophil % 68.1 % (47-70); Platelet Count 261 K/mm3 (150-450); RBC Distribution Width CV 12.8 % (11.6-14.6); RBC Distribution Width SD 40.4 fl (35.1-43.9); Red Blood Count 5.31 M/mm3 (4.6-6.2); White Blood Count 8.2 K/mm3 (4.4-11.0)
[2023-05-13 17:59] LABS: ALB/GLOB Ratio 1.1 RATIO (0.9-2.4); AST(SGOT) 18 U/L (15-37); Alanine Aminotransfer ALT/SGPT 25 U/L (16-61); Albumin, Serum 3.8 g/dL (3.2-5.0); Alkaline Phosphatase 81 U/L (45-117); Anion Gap 4 (5-15); BUN 16 mg/dL (7-18); BUN/Creat Ratio 11.4 RATIO (10-20); Calcium,Total 9.3 mg/dL (8.5-10.1); Chloride 105 mmol/L (98-107); EST Glomerular Filtration Rate 55 mL/min (>60); Est Glom Filt Rate - Afr Amer 66 mL/min (>60); Globulin 3.4 g/dL (2.2-4.2); Glucose 84 mg/dL (74-106); PSA,Total - Annual Screen 2.12 ng/mL (0.00-4.00); Protein, Total 7.2 g/dL (6.4-8.2); Sodium Level 138 mmol/L (136-145); Thyroid Stim Hormone (TSH) 2.53 uIU/mL (0.358-3.74)
== END | disposition home or self-care (01) ==
LOC: POLAB3 15:29
PROVIDERS: PCP Family Medicine Geriatric Medicine; Visit Provider Family Medicine Geriatric Medicine
DX: Z12.5 Encounter for screening for malignant neoplasm of prostate (principal); R53.83 Other fatigue
CPT/HCPCS: 36415; 80053; 84153; 84443; 85025; G0103

== ENCOUNTER 2023-07-25 05:16 | Emergency (ER) | payer OTHER, SELFPAY ==
[2023-07-25 05:17] VITALS: BP 159/91; PULSE 74; RESP 16; TEMP 36.2; O2SAT 95; BMI 27.6
--- NOTE | 2023-07-25 05:30 | EDS_ITS ---
HPI History of Present Illness Chief Complaint: Lower Extremity Injury Detail of Chief Complaint: Left ankle injury Informant: patient Onset/Context/Timing Onset: Yesterday Narrative Narrative: Patient presents secondary to left ankle injury. He states after work last evening he had taken a bath and when walking downstairs carrying something in his hands he missed the bottom step and fell. He felt a snap and thought he broke his ankle, but was able to weight-bear following this. He decided he would wait to see how he felt in the morning. This morning he continues to have pain with some swelling to his ankle, but is able to weight-bear. He denies pain at the knee or hip. No other injury from the fall. [facility] Medical History GERD (gastroesophageal reflux disease) Home Medications omeprazole 40 mg capsule,delayed release 40 mg PO .Q5Days 07/25/23 [History Last Taken Unknown] Allergy/AdvReac Type Severity Reaction Status Date / Time No Known Allergies Allergy Verified 02/20/23 00:56 Social History Smoking Status: Never smoker ROS ROS ED Constitutional Constitutional ED: Denies chills or fever(s) Eyes Eyes: Denies discharge from eye(s) ENT ENT ED: Denies discharge from eye(s), rhinorrhea or sore throat Cardiovascular Cardiovascular: Denies chest pain or palpitations Respiratory/Chest Respiratory/Chest: Denies cough or dyspnea Gastrointestinal Gastrointestinal: Denies abdominal pain, nausea or vomiting Musculoskeletal Musculoskeletal: Reports extremity pain; Denies back pain Integumentary Denies Abrasions or rash Neurologic Neurologic: Denies headache(s) or weakness Psychiatric Psychiatric: Denies anxiety or depression Allergic/Immunologic Allergic/Immunologic ED: Denies lip swelling or urticaria EXAM Physical Exam Const Vital Signs: 07/25/23 05:17 Temperature 97.1 F L Temperature Source Temporal Pulse Rate 74 Respiratory Rate 16 Blood Pressure 159/91 H Blood Pressure Mean 113 Pulse Ox 95 Oxygen Delivery Method Room Air Positive well nourished and well developed General Appearance ED: well developed HEENT Reports moist mucous membranes Eyes EOMs intact bilaterally Neck no lymphadenopathy Chest Wall inspection of chest normal and palpation of chest normal Resp normal respiratory effort and clear to auscultation bilaterally Cardio regular rate and regular rhythm GI non-tender Palpation: soft Extremity Extremity Narrative: Tenderness palpation with mild edema to the lateral malleolus of the left ankle. No joint instability. No tenderness over the foot or proximal fifth metatarsal. No tenderness at the knee or proximal fibula. No lacerations or open wounds. Neuro oriented x3 and no sensory deficits noted Psych mental status grossly normal Skin no rashes or lesions noted MDM MDM MDM Narrative Medical decision making narrative: Left ankle x-rays obtained to evaluate for possible fracture. Differential diagnosis includes sprain, strain, contusion. Radiography Diagnostic Testing: Clinical Impression(s) from Imaging Studies Ankle X-Ray 07/25/23 05:35 IMPRESSION: Negative left ankle x-rays. Electronically Signed: To Mulligan MD at 6:45 EDT , Treatment and Re-Evaluation :: Left ankle x-rays per my interpretation reveal no obvious fracture. Radiology interpretation reviewed and agrees. Test results discussed with the patient. He will be given a air stirrup splint to help with ankle support. He will be given the phone number for foot and ankle follow-up if not improving. Return instructions provided. Discharge Plan Triage Chief Complaint: Lower Extremity Injury ED Provider: Thalia Ontiveros Dx/Rx/DC Orders Clinical Impression: Left ankle sprain Instructions: ED Ankle Sprain (Adult) Prescriptions: No Action omeprazole 40 mg capsule,delayed release(DR/EC) 40 mg PO .Q5Days Primary Care Provider: Jose Petty Chi Referrals: To Laird DPM [Med Staff - Active Staff] - As Needed Jose Petty Chi, MD [Primary Care Provider] - Disposition Disposition: Home, Self Care
--- NOTE | 2023-07-25 05:35 | RAD_ITS ---
EXAM: XR LEFT ANKLE COMPLETE, 3 OR MORE VIEWS CLINICAL INDICATION: injury TECHNIQUE: Frontal, lateral and oblique views of the left ankle. COMPARISON: No relevant prior studies available. FINDINGS: BONES/JOINTS: Unremarkable. No acute fracture. No subluxation. Normal alignment. Preservation of the joint space. No sclerotic or destructive changes observed. SOFT TISSUES: Unremarkable. No soft tissue swelling or gas. No radiopaque foreign body. RAD/Ankle min 3 Views IMPRESSION: Negative left ankle x-rays. Electronically Signed: To Mulligan MD at 6:45 EDT ,
[2023-07-25 07:08] VITALS: BP 132/79; PULSE 73; RESP 16; TEMP 36.2; O2SAT 95
== END 2023-07-25 07:09 | disposition home or self-care (01) ==
PROVIDERS: Emergency Provider Emergency Medicine; PCP Family Medicine Geriatric Medicine; Visit Provider Emergency Medicine
DX: S93.402A Sprain of unspecified ligament of left ankle, initial encounter (principal); K21.9 Gastro-esophageal reflux disease without esophagitis; W10.9XXA Fall (on) (from) unspecified stairs and steps, initial encounter
CPT/HCPCS: 73610; 99283

== ENCOUNTER → 2023-10-08 | Outpatient (CLI) | payer OTHER, SELFPAY ==
[2023-10-08 17:53] LABS: Anion Gap 4 (5-15); BUN 19 mg/dL (7-18); BUN/Creat Ratio 18.3 RATIO (10-20); Calcium,Total 9.6 mg/dL (8.5-10.1); Chloride 106 mmol/L (98-107); Creatinine, Serum 1.04 mg/dL (0.70-1.30); EST Glomerular Filtration Rate 77 mL/min (>60); Est Glom Filt Rate - Afr Amer 93 mL/min (>60); Glucose 81 mg/dL (74-106); Potassium 4.2 mmol/L (3.5-5.1); Sodium Level 138 mmol/L (136-145)
== END | disposition home or self-care (01) ==
LOC: LAB 16:33
PROVIDERS: PCP Family Medicine Geriatric Medicine; Referring Provider Family Medicine Geriatric Medicine; Visit Provider Family Medicine Geriatric Medicine
DX: E78.5 Hyperlipidemia, unspecified (principal)
CPT/HCPCS: 36415; 80048

== ENCOUNTER → 2024-05-17 | Outpatient (CLI) | payer OTHER, SELFPAY ==
[2024-05-17 16:27] LABS: Absolute Lymphocyte Count 2.23 X10^3/uL (0.83-4.51); Absolute Neutrophil Count 6.2 X10^3/uL (2.0-7.7); Basophil# 0.05 X10^3/uL; Basophil% 0.5 % (0-1); Eosinophil# 0.27 X10^3/uL; Eosinophils% 2.9 % (0-5); Hematocrit 47.1 % (40-54); Hemoglobin 15.8 g/dL (13.0-16.5); Lymphocyte # 2.23 X10^3/ul (0.83-4.51); Lymphocyte % 23.8 % (19-41); Mean Corp Hgb Conc 33.5 g/dL (32-36); Mean Corpuscular Hgb 28.1 pg (27.0-32.0); Mean Corpuscular Volume 83.8 fL (80-94); Mean Platelet Vol. 9.8 fl (6.2-12.0); Monocyte# 0.59 X10^3/uL; Monocyte% 6.3 % (0-10); NRBC Flagged by Analyzer 0 % (0-5); Neutrophil # 6.17 X10^3/uL (2.7-7.7); Neutrophil % 65.8 % (47-70); Platelet Count 263 K/mm3 (150-450); RBC Distribution Width CV 13.2 % (11.6-14.6); RBC Distribution Width SD 40.1 fl (35.1-43.9); Red Blood Count 5.62 M/mm3 (4.6-6.2); White Blood Count 9.4 K/mm3 (4.4-11.0)
[2024-05-17 17:33] LABS: ALB/GLOB Ratio 1.1 RATIO (0.9-2.4); AST(SGOT) 24 U/L (15-37); Alanine Aminotransfer ALT/SGPT 39 U/L (16-61); Albumin, Serum 3.8 g/dL (3.2-5.0); Alkaline Phosphatase 72 U/L (45-117); Anion Gap 5 (5-15); BUN 15 mg/dL (7-18); BUN/Creat Ratio 13.2 RATIO (10-20); Calcium,Total 9.2 mg/dL (8.5-10.1); Chloride 105 mmol/L (98-107); Cholesterol 198 mg/dL (200); Creatinine, Serum 1.14 mg/dL (0.70-1.30); EST Glomerular Filtration Rate 69 mL/min (>60); Est Glom Filt Rate - Afr Amer 83 mL/min (>60); Globulin 3.5 g/dL (2.2-4.2); Glucose 82 mg/dL (74-106); High Density Lipoprotein 43 mg/dL; PSA,Total - Annual Screen 1.81 ng/mL (0.00-4.00); Potassium 4.4 mmol/L (3.5-5.1); Protein, Total 7.3 g/dL (6.4-8.2); Sodium Level 136 mmol/L (136-145); Triglycerides 163 mg/dL; Very Low Density Lipoprotein 33 mg/dL (5-40)
== END | disposition home or self-care (01) ==
LOC: LAB 15:20
PROVIDERS: PCP Family Medicine Geriatric Medicine; Referring Provider Family Medicine Geriatric Medicine; Visit Provider Family Medicine Geriatric Medicine
DX: Z12.5 Encounter for screening for malignant neoplasm of prostate (principal); E78.5 Hyperlipidemia, unspecified; R53.83 Other fatigue
CPT/HCPCS: 36415; 80053; 80061; 84153; 84443; 85025; G0103

== ENCOUNTER 2024-10-31 05:02 | Day surgery (SDC) | payer OTHER, SELFPAY ==
[2024-10-31] VITALS (7 sets, daily range): BP systolic 96–135; BP diastolic 70–77; PULSE 65–83; RESP 14–18; TEMP 36.1–37.6; O2SAT 92–96; BMI 27.5
--- OUTSIDE RECORDS SUMMARY | 2024-10-31 05:05 | XMS RPT_ITS | CCD ---
Author Organization [facility] Care Team Providers Care Kerrick Kleaner Operator Name Role Phone Andreina Dean Unavailable Unavailable Jermaine, Andreina Unavailable Unavailable Jovanny, Dr. Jose Alex Primary Care Provider [phone] Dr. Thiago Garza Emergency Provider Friend, Dr. Marti Attending Provider Friend, Dr. Marti Referring Provider [phone] Friend, Dr. Marti Other Provider [facility])[phone] Jose Petty Chi Primary Care Provider [phone] Dr. Thiago Garza Emergency Provider Friend, Dr. Marti Attending Provider Friend, Dr. Marti Referring Provider Friend, Dr. Marti Other Provider Dr. Jose Petty Chi Referring Provider Jovanny, Jose Chi Primary Care Unavailable Thalia Carver Attending Unavailable Jovanny, Jose Chi Referring Unavailable Jovanny, Jose Chi Primary Care Unavailable Jovanny, Jose Chi Referring Unavailable Jovanny Jose Chi Attending Unavailable Jovanny, Jose Chi Primary Care Unavailable FriendFigueroa Attending Unavailable Jovanny, Jose Chi Referring Unavailable Medications Current Medications Medication Drug Class(es) Dates Sig (Normalized) Sig (Original) omeprazole 40 mg delayed release oral capsule (11 sources) Proton Pump Inhibitor Start: 07-25-2023 Omeprazole Active 40 MG PO .Q5Days July 25, 2023 12:00am Start: 02-20-2023 End: 07-25-2023 take 40 mg by mouth twice daily Omeprazole Discontinued 40 MG PO TWICE A DAY 60 February 20, 2023 7:26am July 25, 2023 5:20am Start: 02-20-2023 End: 02-20-2023 take 40 mg by mouth once daily Omeprazole Discontinued 40 MG PO DAILY February 20, 2023 12:00am February 20, 2023 7:26am Problems Active Problems Problem Classification Problem Date Documented Da te Episodic/Chronic Esophageal disorders (4 sources) Eosinophilic esophagitis; Translations: [Eosinophilic esophagitis] Onset: 06-20-2024 03-19-2023 Chronic Other gastrointestinal disorders (7 sources) Dysphagia; Translations: [Dysphagia, unspecified] 09-30-2021 Episodic Other injuries and conditions due to external causes (7 sources) Foreign body in esophagus; Translations: [Unspecified foreign body in esophagus causing other injury, initial encounter] 09-30-2021 Episodic Other injuries and conditions due to external causes (4 sources) Food lodged in esophagus; Translations: [Food in esophagus causing other injury, initial encounter] 02-20-2023 Episodic Other injuries and conditions due to external causes (3 sources) Food in esophagus causing other injury, initial encounter; Translations: [Foreign body in esophagus] 02-20-2023 Episodic Sprains and strains (1 source) Sprain of left ankle; Translations: [Sprain of unspecified ligament of left ankle, initial encounter] 07-25-2023 Episodic Past or Other Problems Problem Classification Problem Date Documented Da te Episodic/Chronic Other inflammatory condition of skin (2 sources) Pruritus, unspecified; Translations: [Pruritus, unspecified] Onset: 01-08-2017 Episodic Other screening for suspected conditions (not mental disorders or infectious disease) (2 sources) Encounter for screening for malignant neoplasm of colon; Translations: [Encounter for screening for malignant neoplasm of prostate] Onset: 06-09-2024 Episodic Residual codes; unclassified (1 source) Family history of malignant neoplasm of digestive organs; Translations: [Family history of malignant neoplasm of digestive organs] Onset: 06-20-2024 Episodic Results Test Name Value Interpretation Reference Range Facility Gastroenterology Visit Repor ton 06-20-[address] [facility] [address] 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 Is patient in pain?: No Allergies No Known Allergies Allergy (Verified 06/20/24 15:30) Medications ???Medication ???Instructions ???Recorded ???Confirmed ???Type peg 3350-electrolytes 236 240 ml PO Q10M #4,000 mL 06/20/24 06/20/24 Rx gram-22.74 gram-6.74 gram-5.86 gram solution (Golytely) Have you fallen in the past year?: No PFSH Medical History Insomnia Hyperlipidemia Major depressive disorder Anxiety disorder GERD (gastroesophageal reflux disease) Family History Father Hypertension Social History Smoking Status: Former smoker Smokeless tobacco user: chewing tobacco alcohol intake: never substance use type: does not use HPI HPI Chief Complaint: follow-up Details: EFREN GOMES, is a 64 M who presents to the office today for *[facility] ED 02.20.23 with food impaction requiring EGD by GI for removal. ? EGD 02.20.23 mucosal changes of EOE >20/field; food bolus, removed; moderate Schatzki ring, Savary 51F; small hiatal hernia Contact 03.13.23 with results; reports he was diagnosed with EOE many years ago but was unaware this was a progressive disease, required PPI management and that ongoing monitoring needed to be performed. Recommended restart of PPI (he had stopped). OV 03.19.23 for the last 15 years he has been having dysphagia; this is the second time requiring endoscopic intervention. PCP previously referred for allergen testing and has coffee sensitivity, notes alcohol is also a difficulty which he eliminated. Since conversation 03.13.23 he has been taking PPI QD (he does miss some doses) and reports he feels significantly better. EGD eosinophils (>20 per high power field), negative for Alvarado's - Esophageal mucosal changes consistent with eosinophilic esophagitis. - Food in the lower third of the esophagus. Removal was successful. - Moderate Schatzki ring. Dilated. - Small hiatal hernia. - Normal stomach. - No gross lesions in the duodenal bulb. - Biopsies were taken with a cold forceps for evaluation of eosinophilic esophagitis. - he is asymptomatic - requesting an EGD and colonoscopy - states February 2023 was his 3rd episode of food impaction - states his triggers were alcohol and coffee - no more alcohol and - reports now his episodes of dysphagia are very infrequent - and when he does have an episode he stands up and food passes - denies any any N/V - denies any weight loss - denies any change in bowel habits - denies any bleeding - Mother with colon CA at 77y/o - reports his colonoscopy was 10 years ago - normal ROS Const Constitutional: No fatigue, fever(s) or weight change ENT ENT: Positive for difficulty swallowing Gastro GI: Positive for difficulty swallowing; No abdominal pain, belching, bloating, change in bowel habits, change in stool character, coffee ground emesis, constipation, cramping, diarrhea, heartburn, feeling full early, excessive flatus, incontinent of stools, Vomiting blood/hematemesis, Blood in stool, loose stools, Black,tarry stools, nausea/dyspepsia, pain with swallowing, vomiting or other Musc Musculoskeletal: No joint pain Skin Skin: No yellowing of the eye or itchy eyes Psych Psychiatric: No anxiety and No depression Endo Endocrine: No fatigue or weight change Aller/Imm Allergy/Immunologic: No itchy eyes Juan R/Lymp Hematologic/Lymphatic: No easy bleeding or easy bruising Exam Const General: cooperative, healthy appearing, no acute distress and well developed Nutritional Appearance: average body habitus and well nourished Orientation: alert and oriented x3 HENMT Head: normocephalic Ears: hearing grossly normal bilaterally Mouth: moist mucous membranes Eyes Conjunctivae: conjunctivae normal Sclera: sclerae normal Neck Neck: normal visual inspection, full ROM and trachea midline Resp Effort Inspection: normal respiratory effort, able to speak in complete sentences and symmetric chest movement GI Inspection: normal to inspection (more content not included)... Normal [facility] CBC W/Diff, Automatedon 01-0 7-2024 Absolute Lymph 2.23 X10 3/uL Normal 0.83-4.51 [facility] Comment on above: Performed By: #### L 100.0100, L501.9910, L501.9520, L500.4100, L500.4050 #### [facility] [address] [place], [address] Absolute Neut 6.2 X10 3/uL Normal 2.0-7.7 [facility] Comment on above: Performed By: #### L 100.0100, L501.9910, L501.9520, L500.4100, L500.4050 #### [facility] [address] [place], [address] Basophils/100 WBC (Bld) 0.5 % Normal 0-1 [facility] Comment on above: Performed By: #### L 100.0100, L501.9910, L501.9520, L500.4100, L500.4050 #### [facility] [address] [place], [address] Eosinophils/100 WBC (Bld) 2.9 % Normal 0-5 [facility] Comment on above: Performed By: #### L 100.0100, L501.9910, L501.9520, L500.4100, L500.4050 #### [facility] [address] [place], [address] Erythrocyte distribution width (RBC) [Ratio] 13.2 % Normal 11.6-14.6 [facility] Comment on above: Performed By: #### L 100.0100, L501.9910, L501.9520, L500.4100, L500.4050 #### [facility] [address] [place], [address] Hematocrit (Bld) [Volume fraction] 47.1 % Normal 40-54 [facility] Comment on above: Performed By: #### L 100.0100, L501.9910, L501.9520, L500.4100, L500.4050 #### [facility] [address] [place], [address] Hemoglobin (Bld) [Mass/Vol] 15.8 g/dL Normal 13.0-16.5 [facility] Comment on above: Performed By: #### L 100.0100, L501.9910, L501.9520, L500.4100, L500.4050 #### [facility] [address] [place], [address] IG% 0.700 Normal 0.0-0.9 [facility] Comment on above: Result Comment: IG% - Immature Granulocytes (promyelocytes, myelocytes and metamyelocytes) > 1% indicates that a LEFT SHIFT is Present. Performed By: #### L 100.0100, L501.9910, L501.9520, L500.4100, L500.4050 #### [facility] [address] [place], [address] Lymphocytes/100 WBC (Bld) 23.8 % Normal 19-41 [facility] Comment on above: Performed By: #### L 100.0100, L501.9910, L501.9520, L500.4100, L500.4050 #### [facility] [address] [place], [address] MCH (RBC) [Entitic mass] 28.1 pg Normal 27.0-32.0 [facility] Comment on above: Performed By: #### L 100.0100, L501.9910, L501.9520, L500.4100, L500.4050 #### [facility] [address] [place], [address] MCHC (RBC) [Mass/Vol] 33.5 g/dL Normal 32-36 [place] [facility] Comment on above: Performed By: #### L 100.0100, L501.9910, L501.9520, L500.4100, L500.4050 #### [facility] [address] [place], [address] MCV (RBC) [Entitic vol] 83.8 fL Normal 80-94 [facility] Comment on above: Performed By: #### L 100.0100, L501.9910, L501.9520, L500.4100, L500.4050 #### [facility] [address] [place], [address] Monocytes/100 WBC (Bld) 6.3 % Normal 0-10 [facility] Comment on above: Performed By: #### L 100.0100, L501.9910, L501.9520, L500.4100, L500.4050 #### [facility] [address] [place], [address] Neutrophils/100 WBC (Bld) 65.8 % Normal 47-70 [facility] Comment on above: Performed By: #### L 100.0100, L501.9910, L501.9520, L500.4100, L500.4050 #### [facility] [address] [place], [address] Nucleated RBC (Bld) [#/Vol] 0 10*3/uL Normal 0-5 [facility] Comment on above: Performed By: #### L 100.0100, L501.9910, L501.9520, L500.4100, L500.4050 #### [facility] [address] [place], [address] Platelet mean volume (Bld) [Entitic vol] 9.8 fL Normal 6.2-12.0 [facility] Comment on above: Performed By: #### L 100.0100, L501.9910, L501.9520, L500.4100, L500.4050 #### [facility] [address] [place], [address] Platelets (Bld) [#/Vol] 263 10*3/uL Normal 150-450 [facility] Comment on above: Performed By: #### L 100.0100, L501.9910, L501.9520, L500.4100, L500.4050 #### [facility] [address] [place], [address] RBC (Bld) [#/Vol] 5.62 10*6/uL Normal 4.6-6.2 [facility] Comment on above: Performed By: #### L 100.0100, L501.9910, L501.9520, L500.4100, L500.4050 #### [facility] [address] [place], [address] RDW SD 40.1 fl Normal 35.1-43.9 [facility] Comment on above: Performed By: #### L 100.0100, L501.9910, L501.9520, L500.4100, L500.4050 #### [facility] [address] [place], [address] WBC (Bld) [#/Vol] 9.4 10*3/uL Normal 4.4-11.0 [facility] Comment on above: Performed By: #### L 100.0100, L501.9910, L501.9520, L500.4100, L500.4050 #### [facility] [address] [place], [address] Comprehensive Metabolic Prof ilon 05-17-2024 Albumin [Mass/Vol] 3.8 g/dL Normal 3.2-5.0 [facility] Comment on above: Performed By: #### L 100.0100, L501.9910, L501.9520, L500.4100, L500.4050 #### [facility] [address] [place], [address] Albumin/Globulin [Mass ratio] 1.1 {ratio} Normal 0.9-2.4 [facility] Comment on above: Performed By: #### L 100.0100, L501.9910, L501.9520, L500.4100, L500.4050 #### [facility] [address] [place], [address] ALK P 72 U/L Normal 45-117 [facility] Comment on above: Performed By: #### L 100.0100, L501.9910, L501.9520, L500.4100, L500.4050 #### [facility] [address] [place], [address] ALT [Catalytic activity/Vol] 39 U/L Normal 16-61 [facility] Comment on above: Performed By: #### L 100.0100, L501.9910, L501.9520, L500.4100, L500.4050 #### [facility] [address] [place], [address] AST [Catalytic activity/Vol] 24 U/L Normal 15-37 [facility] Comment on above: Performed By: #### L 100.0100, L501.9910, L501.9520, L500.4100, L500.4050 #### [facility] [address] [place], [address] Bilirubin [Mass/Vol] 0.70 mg/dL Normal 0.20-1.00 [facility] Comment on above: Result Comment: For patients on eltrombopag therapy, use of Dimension [place] TBIL is not recommended. Performed By: #### L 100.0100, L501.9910, L501.9520, L500.4100, L500.4050 #### [facility] [address] [place], [address] BUN/CRE 13.2 RATIO Normal 10-20 [facility] Comment on above: Performed By: #### L 100.0100, L501.9910, L501.9520, L500.4100, L500.4050 #### [facility] [address] [place], [address] CA,Total 9.2 mg/dL Normal 8.5-10.1 [facility] Comment on above: Performed By: #### L 100.0100, L501.9910, L501.9520, L500.4100, L500.4050 #### [facility] [address] [place], [address] Chloride [Moles/Vol] 105 mmol/L Normal 98-107 [facility] Comment on above: Performed By: #### L 100.0100, L501.9910, L501.9520, L500.4100, L500.4050 #### [facility] [address] [place], [address] CO2 [Moles/Vol] 27.0 mmol/L Normal 21.0-32.0 [facility] Comment on above: Performed By: #### L 100.0100, L501.9910, L501.9520, L500.4100, L500.4050 #### [facility] [address] [place], [address] Creatinine [Mass/Vol] 1.14 mg/dL Normal 0.70-1.30 [place] [facility] Comment on above: Result Comment: The validity of the calculated GFR GFRAA in patients over 70 years has not been determined. Clinical correlation is essential. Performed By: #### L 100.0100, L501.9910, L501.9520, L500.4100, L500.4050 #### [facility] [address] [place], [address] EST GFR - AA 83 mL/min Normal >60 [facility] Comment on above: Result Comment: Afri can Stateless GFR Calc Performed By: #### L 100.0100, L501.9910, L501.9520, L500.4100, L500.4050 #### [facility] [address] [place], [address] GAP 5 Normal 5-15 [facility] Comment on above: Performed By: #### L 100.0100, L501.9910, L501.9520, L500.4100, L500.4050 #### [facility] [address] [place], [address] GFR/1.73 sq M.predicted among non-blacks MDRD (S/P/Bld) [Vol rate/Area] 69 mL/min/{1.73_m2} Normal >60 [facility] Comment on above: Result Comment: Non- GFR Calc Performed By: #### L 100.0100, L501.9910, L501.9520, L500.4100, L500.4050 #### [facility] [address] [place], [address] Globulin (S) [Mass/Vol] 3.5 g/dL Normal 2.2-4.2 [facility] Comment on above: Performed By: #### L 100.0100, L501.9910, L501.9520, L500.4100, L500.4050 #### [facility] [address] [place], [address] Glucose [Mass/Vol] 82 mg/dL Normal 74-106 [facility] Comment on above: Performed By: #### L 100.0100, L501.9910, L501.9520, L500.4100, L500.4050 #### [facility] [address] [place], [address] Potassium [Moles/Vol] 4.4 mmol/L Normal 3.5-5.1 [place] [facility] Comment on above: Performed By: #### L 100.0100, L501.9910, L501.9520, L500.4100, L500.4050 #### [facility] [address] [place], [address] Sodium [Moles/Vol] 136 mmol/L Normal 136-145 [facility] Comment on above: Performed By: #### L 100.0100, L501.9910, L501.9520, L500.4100, L500.4050 #### [facility] [address] [place], [address] T PROT 7.3 g/dL Normal 6.4-8.2 [facility] Comment on above: Performed By: #### L 100.0100, L501.9910, L501.9520, L500.4100, L500.4050 #### [facility] [address] [place], [address] Urea nitrogen [Mass/Vol] 15 mg/dL Normal 7-18 [facility] Comment on above: Performed By: #### L 100.0100, L501.9910, L501.9520, L500.4100, L500.4050 #### [facility] [address] [place], [address] Lipid Profileon 05-17-2024 Cholesterol [Mass/Vol] 198 mg/dL Normal 200 [facility] Comment on above: Result Comment: <200 mg/dL Desirable 200-240 mg/dL Borderline >240 mg/dL High Risk Performed By: #### L 100.0100, L501.9910, L501.9520, L500.4100, L500.4050 #### [facility] [address] [place], [address] Cholesterol in HDL [Mass/Vol] 43 mg/dL Normal [facility] Comment on above: Result Comment: The drugs N-Acetylcysteine and Metamizole may falsely depress this assay. Reference Range HDL <40 mg/dL Low HDL Cholesterol HDL >or= 60 mg/dL High HDL Cholesterol Performed By: #### L 100.0100, L501.9910, L501.9520, L500.4100, L500.4050 #### [facility] [address] [place], [address] Cholesterol in LDL [Mass/Vol] 122 mg/dL Normal 0-130 [facility] Comment on above: Performed By: #### L 100.0100, L501.9910, L501.9520, L500.4100, L500.4050 #### [facility] [address] [place], [address] Cholesterol in VLDL [Mass/Vol] 33 mg/dL Normal 5-40 [facility] Comment on above: Performed By: #### L 100.0100, L501.9910, L501.9520, L500.4100, L500.4050 #### [facility] [address] [place], [address] Triglyceride [Mass/Vol] 163 mg/dL Normal [facility] Comment on above: Result Comment: The drugs N-Acetylcysteine and Metamizole may falsely depress this assay. Serum Triglycerides Reference Interval Normal <150 mg/dL Borderline high 150 - 199 mg/dL High 200 - 499 mg/dL Very High > or = 500 mg/dL Performed By: #### L 100.0100, L501.9910, L501.9520, L500.4100, L500.4050 #### [facility] [address] [place], [place], [address] PSA,Total - Annual Screenon 05-17-2024 PSA,TOT SCREEN 1.81 ng/mL Normal 0.00-4.00 [facility] Comment on above: Result Comment: This test was performed using the TPSA assay method for the [employer] chemistry system. Values obtained with different assay methods cannot be used interchangably. When changing PSA assays in the course of monitoring a patient, additional sequential testing should be carried out to confirm baseline values. Performed By: #### L 100.0100, L501.9910, L501.9520, L500.4100, L500.4050 #### [facility] [address] [place], [address] Thyroid Stim Hormone (TSH)on 05-17-2024 TSH 2.410 uIU/mL Normal 0.358-3.740 [facility] Comment on above: Performed By: #### L 100.0100, L501.9910, L501.9520, L500.4100, L500.4050 #### [facility] [address] [facility] [address] [place], [place], [id number] Absolute lymphocyte countOrd ered By: Jose Fernándezok on 05-13-2023 Lymphocytes Auto (Unsp spec) [#/Vol] 1.77 10*3/uL 0.83-4.51 [facility] Basophil percentageOrdered B y: Jose Petty on 05-13-2023 Basophils/100 WBC (Bld) 0.4 % 0-1 [facility] Bilirubin [Mass/Vol] 0.30 mg/dL 0.20-1.00 [facility] Comment on above: For patients on eltr ombopag therapy, use of Dimension [place] TBIL is not recommended. Chloride [Moles/Vol] 105 mmol/L 98-107 [facility] Eosinophils/100 WBC (Bld) 2.5 % 0-5 [facility] Glucose [Mass/Vol] 84 mg/dL 74-106 [facility] Neutrophils (Bld) [#/Vol] 5.6 10*3/uL 2.0-7.7 [facility] Neutrophils/100 WBC (Bld) 68.1 % 47-70 [facility] Potassium [Moles/Vol] 4.0 mmol/L 3.5-5.1 [facility] Protein [Mass/Vol] 7.2 g/dL 6.4-8.2 [facility] Sodium [Moles/Vol] 138 mmol/L 136-145 [facility] WBC (Bld) [#/Vol] 8.2 10*3/uL 4.4-11.0 [facility] Blood erythrocytes count (nu mber/volume)Ordered By: Jose Petty on 05-13-2023 RBC (Bld) [#/Vol] 5.31 10*6/uL 4.6-6.2 [facility] Blood hemoglobin measurement (mass/volume)Ordered By: Jose Petty on 05-13-2023 Hemoglobin (Bld) [Mass/Vol] 15.1 g/dL 13.0-16.5 [facility] Blood lymphocytes/100 leukoc ytesOrdered By: Jose Petty on 05-13-2023 Lymphocytes/100 WBC (Bld) 21.5 % 19-41 [facility] Blood monocytes/100 leukocyt esOrdered By: Jose Petty on 05-13-2023 Monocytes/100 WBC (Bld) 6.9 % 0-10 [facility] Blood platelet mean volumeOr dered By: Jose Petty on 05-13-2023 Platelet mean volume (Bld) [Entitic vol] 9.7 fL 6.2-12.0 [facility] Determination of erythrocyte mean corpuscular volume (MCV)Ordered By: Jose Petty on 05-13-2023 MCV (RBC) [Entitic vol] 86.8 fL 80-94 [facility] Hematocrit Auto (Bld) [Volum e fraction]Ordered By: Jose Petty on 05-13-2023 Hematocrit (Bld) [Volume fraction] 46.1 % 40-54 [facility] - Chemistry and C hemistry - challengeOrdered By: Jose Petty on 05-13-2023 ALP [Catalytic activity/Vol] 81 U/L 45-117 [facility] ALT [Catalytic activity/Vol] 25 U/L 16-61 [facility] CO2 [Moles/Vol] 29.0 mmol/L 21.0-32.0 [facility] Globulin (S) [Mass/Vol] 3.4 g/dL 2.2-4.2 [facility] Urea nitrogen/Creatinine [Mass ratio] 11.4 mg/mg 10-20 [facility] - Hematology and Cell countsOrdered By: Jose Petty on 05-13-2023 Erythrocyte distribution width (RBC) [Entitic vol] 40.4 fL 35.1-43.9 [facility] Erythrocyte distribution width (RBC) [Ratio] 12.8 % 11.6-14.6 [facility] Immature granulocytes/100 WBC (Bld) 0.600 % 0.0-0.9 [facility] Comment on above: IG% - Immature Granu locytes (promyelocytes, myelocytes and metamyelocytes) > 1% indicates that a LEFT SHIFT is Present. MCH (RBC) [Entitic mass] 28.4 pg 27.0-32.0 [facility] Nucleated RBC/100 WBC (Bld) [Ratio] 0 % 0-5 [facility] MCHC Auto (RBC) [Mass/Vol]Or dered By: Jose Petty on 05-13-2023 MCHC (RBC) [Mass/Vol] 32.8 g/dL 32-36 [facility] No Panel InformationOrdered By: Jose Petty on 05-13-2023 Estimated GFR (MDRD) Amer 66 mL/min >60 [facility] Comment on above: GFR Calc Estimated GFR (MDRD) Non-Af Amer 55 mL/min >60 [facility] Comment on above: Non- GFR Calc Prostate Specific Antigen Screen 2.12 ng/mL 0.00-4.00 [facility] Comment on above: This test was perfor med using the TPSA assay method for [facility]. Values obtained with differentassay methods cannot be used interchangably.When changing PSA assays in the course of monitoring apatient, additional sequential testing should be carriedout to confirm baseline values. Thyroid Stimulating Hormone (TSH) 2.53 uIU/mL 0.358-3.74 [facility] Platelets bldOrdered By: Jose Petty on 05-13-2023 Platelets (Bld) [#/Vol] 261 10*3/uL 150-450 [facility] Serum or plasma albumin nathan urement (mass/volume)Ordered By: Jose Jovanny on 05-13-2023 Albumin [Mass/Vol] 3.8 g/dL 3.2-5.0 [facility] Serum or plasma albumin/glob ulin mass ratioOrdered By: Jose Jovanny on 05-13-2023 Albumin/Globulin [Mass ratio] 1.1 {ratio} 0.9-2.4 [facility] Serum or plasma calcium nathan urement (mass/volume)Ordered By: Jose Jovanny on 05-13-2023 Calcium [Mass/Vol] 9.3 mg/dL 8.5-10.1 [facility] Serum or plasma creatinine m easurement (mass/volume)Ordered By: Jose Jovanny on 05-13-2023 Creatinine [Mass/Vol] 1.40 mg/dL 0.70-1.30 [facility] Comment on above: The validity of the calculated GFR & GFRAA in patients over 70 years has not been determined. Clinical correlation is essential. Serum or plasma urea nitroge n measurement (mass/volume)Ordered By: Jose Jovanny on 05-13-2023 Urea nitrogen [Mass/Vol] 16 mg/dL 7-18 [facility] Thin prep Papanicolaou smear with manual screeningOrdered By: Jose Petty on 05-13-2023 Thin prep Papanicolaou smear with manual screening 18 U/L 15-37 [facility] Thin prep Papanicolaou smear with manual screening 4 5-15 [facility] Laboratory - Microbiology an d Antimicrobial susceptibilityon 05-09-2022 SARS-CoV-2 (COVID-19) RNA LU+probe Ql (Unsp spec) Detected Not Detect [facility] Work Phone: Comment on above: Normal Reference Ran ge: Not DetectedMethod:(RT-PCR) real-time reverse transcriptase PCRLuminex ANDREA Instrument*The Food and Drug Administration (FDA) has issued an Emergency Use Authorization (EAU) for the ANDREA SARS-CoV-2 Assay for the rapid detection of the virus that causes COVID-19. This test has been validated, but the FDAs independent review of this validation is pending.*Negative results do not preclude infection and should not be used as the sole basis for treatment or patient management. Optimum specimen types and timing for peak viral levels during infections caused by SARS-CoV-2 have not been determined. Collection of multiple specimens from the same patient may be necessary to detect the virus. The possibility of a false negative result should be considered if the patient has clinical presentation or has had recent exposure. Absolute lymphocyte counton 05-07-2022 Lymphocytes Auto (Unsp spec) [#/Vol] 1.43 10*3/uL 0.83-4.51 [facility] Work Phone: Basophil percentageon 2021 Basophils/100 WBC (Bld) 0.5 % 0-1 [facility] Work Phone: Bilirubin [Mass/Vol] 0.50 mg/dL 0.20-1.00 [facility] Work Phone: Comment on above: For patients on eltr ombopag therapy, use of Dimension [place] TBIL is not recommended. Chloride [Moles/Vol] 103 mmol/L 98-107 [facility] Work Phone: Eosinophils/100 WBC (Bld) 2.7 % 0-5 [facility] Work Phone: Glucose [Mass/Vol] 92 mg/dL 74-106 [facility] Work Phone: Neutrophils (Bld) [#/Vol] 3.1 10*3/uL 2.0-7.7 [facility] Work Phone: Neutrophils/100 WBC (Bld) 56.5 % 47-70 [facility] Work Phone: Potassium [Moles/Vol] 4.1 mmol/L 3.5-5.1 [facility] Work Phone: Protein [Mass/Vol] 7.1 g/dL 6.4-8.2 [facility] Work Phone: Sodium [Moles/Vol] 137 mmol/L 136-145 [facility] Work Phone: WBC (Bld) [#/Vol] 5.6 10*3/uL 4.4-11.0 [facility]: [phone] Blood erythrocytes count (nu mber/volume)on 05-07-2022 RBC (Bld) [#/Vol] 5.10 10*6/uL 4.6-6.2 [facility] Work [facility]: [phone] Blood hemoglobin measurement (mass/volume)on 05-07-2022 Hemoglobin (Bld) [Mass/Vol] 15.2 g/dL 13.0-16.5 [facility] Work Phone: [phone] Blood lymphocytes/100 leukoc yteson 05-07-2022 Lymphocytes/100 WBC (Bld) 25.8 % 19-41 [facility] Work Phone: [phone] Blood monocytes/100 leukocyt eson 05-07-2022 Monocytes/100 WBC (Bld) 14.1 % 0-10 [facility] Work Phone: [phone] Blood platelet mean volumeon 05-07-2022 Platelet mean volume (Bld) [Entitic vol] 10.0 fL 6.2-12.0 [facility] Work Phone: Determination of erythrocyte mean corpuscular volume (MCV)on 05-07-2022 MCV (RBC) [Entitic vol] 86.3 fL 80-94 [facility] Work Phone: [phone] Hematocrit Auto (Bld) [Volum e fraction]on 05-07-2022 Hematocrit (Bld) [Volume fraction] 44.0 % 40-54 [facility] Work Phone: Laboratory - Chemistry and C hemistry - challengeon 05-07-2022 ALP [Catalytic activity/Vol] 76 U/L 45-117 [facility] Work Phone: [phone] ALT [Catalytic activity/Vol] 43 U/L 16-61 [facility] Work Phone: [phone] CO2 [Moles/Vol] 30.0 mmol/L 21.0-32.0 [facility] Work Phone: Globulin (S) [Mass/Vol] 3.5 g/dL 2.2-4.2 [facility] Work Phone: [phone] Urea nitrogen/Creatinine [Mass ratio] 10.7 mg/mg 10-20 [facility] Work Phone: [phone] Laboratory - Hematology and Cell countson 05-07-2022 Erythrocyte distribution width (RBC) [Entitic vol] 40.2 fL 35.1-43.9 [facility] Work Phone: [phone] Erythrocyte distribution width (RBC) [Ratio] 12.8 % 11.6-14.6 [facility] Work Phone: [phone] Immature granulocytes/100 WBC (Bld) 0.400 % 0.0-0.9 [facility] Work Phone: [phone] Comment on above: IG% - Immature Granu locytes (promyelocytes, myelocytes and metamyelocytes) > 1% indicates that a LEFT SHIFT is Present. MCH (RBC) [Entitic mass] 29.8 pg 27.0-32.0 [facility] Work Phone: [phone] Nucleated RBC/100 WBC (Bld) [Ratio] 0 % 0-5 [facility] Work Phone: [phone] MCHC Auto (RBC) [Mass/Vol]on 05-07-2022 MCHC (RBC) [Mass/Vol] 34.5 g/dL 32-36 [facility] Work Phone: [phone] Panel Informationon 05-07 Estimated GFR (MDRD) Amer 86 mL/min >60 [facility] Work Phone: [phone] Comment on above: GFR Calc Estimated GFR (MDRD) Non-Af Amer 71 mL/min >60 [facility] Work Phone: [phone] Comment on above: Non- GFR Calc Prostate Specific Antigen Screen 1.20 ng/mL 0.00-4.00 [facility] Work Phone: [phone] Comment on above: This test was perfor med using the TPSA assay method for [facility]. Values obtained with differentassay methods cannot be used interchangably.When changing PSA assays in the course of monitoring apatient, additional sequential testing should be carriedout to confirm baseline values. Thyroid Stimulating Hormone (TSH) 2.53 uIU/mL 0.358-3.74 [facility] Work Phone: Vitamin D 25-Hydroxy 26.4 ng/mL [facility] Work Phone: Comment on above: Vitamin D 25(OH) Sta tus Range Deficiency <20 ng/mL (50nmol/L) Insufficiency 20 - 30 ng/mL (50 - 75 nmol/L) Sufficiency 30 - 100 ng/mL (75 - 250 nmol/L) Toxicity >100 ng/mL (>250 nmol/L) Platelets bldon 05-07-2022 Platelets (Bld) [#/Vol] 210 10*3/uL 150-450 [facility] Work Phone: Serum or plasma albumin nathan urement (mass/volume)on 05-07-2022 Albumin [Mass/Vol] 3.6 g/dL 3.2-5.0 [facility] Work Phone: Serum or plasma albumin/glob ulin mass ratioon 05-07-2022 Albumin/Globulin [Mass ratio] 1.0 {ratio} 0.9-2.4 [facility] Work Phone: Serum or plasma calcium nathan urement (mass/volume)on 05-07-2022 Calcium [Mass/Vol] 8.7 mg/dL 8.5-10.1 [facility] Work Phone: [phone] Serum or plasma creatinine m easurement (mass/volume)on 05-07-2022 Creatinine [Mass/Vol] 1.12 mg/dL 0.70-1.30 [facility] Work Phone: Comment on above: The validity of the calculated GFR & GFRAA in patients over 70 years has not been determined. Clinical correlation is essential. Serum or plasma urea nitroge n measurement (mass/volume)on 05-07-2022 Urea nitrogen [Mass/Vol] 12 mg/dL 7-18 [facility] Work Phone: Thin prep Papanicolaou smear with manual screeningon 05-07-2022 Thin prep Papanicolaou smear with manual screening 20 U/L 15-37 [facility] Work Phone: Thin prep Papanicolaou smear with manual screening 4 5-15 [facility] Work Phone: PROGRESSon 10-23-2018 Protein mass conc HNO ID: [id number] Author: Jc Meehan Service: ? Author Type: Physician Type: Progress Notes Filed: 10/23/2018 9:10 AM Note Text: OPERATIVE NOTATION FOR [facility] SURGICAL PROCEDURE. October 22, 2018 Efren Gomes 1960 [id number] male PROCEDURE: EGD WITH REMOVAL OF FOREIGN BODY - 04532- SURGEON: Arnoldo Meehan M.D. FACS OPERATIONS RECRUITER: None DEPT: W PROVIDER: [id number] Meehan MD POS: GF3=EMERGENCY ROOM DIAGNOSIS: (T18.108A) Esophageal foreign body, initial encounter (primary encounter diagnosis) ASA CLASS: 2E - mild emergency FINDINGS: COMPLICATIONS: None PMHx - No past medical history on file. COMORBIDITIES - Chronic Alcohol Abuse Post Op Occurrences - None Wound Classification - Clean Contaminated Operative note dictated in the [facility] dictation system. Jc Meehan MD [facility] Surgical Pathologyon [facility] [id number] [facility] PATHOLOGY AND LABORATORY MEDICINE [address] [place] [id number] FINAL SURGICAL PATHOLOGY REPORT NAME: EFREN GOMES .O.B.: 1960 56 Y M BILLING NO.: [id number]: [id number] PROCEDURE 01/08/2017 DATE:SURGEON: ANDREINA DEAN MD RECEIVED 01/09/2017 DATE:ATTENDING: ANDREINA DEAN MD REPORT DATE: 01/14/2017 COPIES TO: ___DIAGNOSIS:SKIN, LEFT ELBOW, PUNCH (DIF) - NEGATIVE DIRECT IMMUNOFLUORESCENCECommen t: Direct antibody localization demonstrates no evidence ofimmunoreactivity for immunoglobulins IgG, IgM, IgA, complement C3, orfibrinogen on sections of frozen skin.XIOMARA/XIOMARA LINARES M.D. ____CLINICAL INFORMATION: Pruritis and excoriated papules upper arms,thighs, waistline and elbowsSPECIMEN: SKIN ____GROSS DESCRIPTION:Left elbow per requisitionReceived in Polytransport buffer is a piece of pink-millan skin thatmeasures 0.3 x 0.2 x 0.2 cm. The specimen is entirely submitted fordirect immunofluorescence. (1 ns, 1) BENTON/ARJDisclaimer: The following statement applies to allimmunohistochemistry, in situ hybridization, molecular studies, andimmunofluorescence testing.The use of one or more reagents in the above tests is regulated as ananalyte specific reagent (ASR). These tests were developed and theirperformance characteristics determined by the clinical laboratories of[facility]. They have not been cleared by the US Food and DrugAdministration (FDA). The FDA has determined that such clearance orapproval is not necessary.All the above immunostains were performed on paraffin embedded tissue.Appropriate positive and negative controls (where applicable) were runin parallel with the patient's specimen; these controls showed expectedstaining pattern, with acceptable intensity of staining.Immunohistochem ical assays have not been validated on decalcifiedtissues. Results should be interpreted with caution given the raisedpossibility of false negativity on decalcified specimens.Professional Performing Location: [place] [address]. DEPARTMENT OF PATHOLOGY AND LABORATORY MEDICINE [place], [place] [address] Normal [facility] Comment on above: Performed By: #### S UR ####Performing Lab is in report No Panel Information Influenza Types A,B Direct FA (FABIO) [facility] Work Phone: RSV Ag EIA RSV Ag Immune stain Ql (Tiss) [facility] Work Phone: Vital Signs Date Time Vital Sign Value Performing Clinician Faci lity 07-25-2023 07:08-0400 Body temperature 97.1 [degF] [facility] 07-25-2023 07:08-0400 Diastolic blood pressure 79 mm[Hg] [facility] 07-25-2023 07:08-0400 Heart rate 73 /min [facility] 07-25-2023 07:08-0400 Respiratory rate 16 /min [facility] 07-25-2023 07:08-0400 SaO2% (BldA) [Mass fraction] 95 % [facility] 07-25-2023 07:08-0400 Systolic blood pressure 132 mm[Hg] [facility] 07-25-2023 05:17-0400 Body height 182.88 cm [facility] 07-25-2023 05:17-0400 Body mass index (BMI) [Ratio] 27.6 kg/m2 [facility] 07-25-2023 05:17-0400 Body weight 92.2 kg [facility] 02-20-2023 07:25-0400 Body temperature 97.6 [degF] Dr. Jose Petty Work Phone: [facility] 02-20-2023 07:25-0400 Diastolic blood pressure 85 mm[Hg] Dr. Jose Petty Work Phone: [facility] 02-20-2023 07:25-0400 Heart rate 64 /min Dr. Jose Petty Work Phone: [facility] 02-20-2023 07:25-0400 Respiratory rate 18 /min Dr. Jose Petty Work Phone: [facility] 02-20-2023 07:25-0400 SaO2% (BldA) [Mass fraction] 97 % Dr. Jose Petty Work Phone: [facility] 02-20-2023 07:25-0400 Systolic blood pressure 131 mm[Hg] Dr. Jose Petty Work Phone: [facility] 02-20-2023 06:28-0400 Diastolic blood pressure 71 mm[Hg] [facility] 02-20-2023 06:28-0400 Heart rate 68 /min [facility] 02-20-2023 06:28-0400 Respiratory rate 16 /min [facility] 02-20-2023 06:28-0400 SaO2% (BldA) [Mass fraction] 99 % [facility] 02-20-2023 06:28-0400 Systolic blood pressure 124 mm[Hg] [facility] 02-20-2023 00:54-0400 Body height 182.88 cm [facility] 02-20-2023 00:54-0400 Body mass index (BMI) [Ratio] 26.6 kg/m2 [facility] 02-20-2023 00:54-0400 Body temperature 98.2 [degF] [facility] 02-20-2023 00:54-0400 Body weight 89 kg [facility] 09-22-2021 13:08-0400 Body height 182.88 cm [facility] Work Phone: 09-22-2021 13:08-0400 Body mass index (BMI) [Ratio] 27.1 kg/m2 [facility] Work Phone: 09-22-2021 13:08-0400 Body temperature 98 [degF] [facility] Work Phone: 09-22-2021 13:08-0400 Body weight 90.71 kg [facility] Work Phone: 09-22-2021 13:08-0400 Diastolic blood pressure 84 mm[Hg] [facility] Work Phone: 09-22-2021 13:08-0400 Heart rate 98 /min [facility] Work Phone: 09-22-2021 13:08-0400 Respiratory rate 18 /min [facility] Work Phone: 09-22-2021 13:08-0400 SaO2% (BldA) [Mass fraction] 97 % [facility] Work Phone: 09-22-2021 13:08-0400 Systolic blood pressure 161 mm[Hg] [facility] Work Phone: Encounters Encounter Date Encounter Type Care Provider Facility Start: 10-31-2024 ambulatory [facility] Jovanny Facility:[facility] Start: 06-20-2024 End: 06-20-2024 ambulatory Jose Chi Jovanny Facility:[facility] Start: 05-17-2024 End: 05-17-2024 ambulatory [facility] Facility:[facility] Start: 07-25-2023 End: 07-25-2023 Emergency department patient visit [facility]-Emergency Department Work Phone: Start: 05-13-2023 End: 05-13-[address] Jose Petty Work Phone: [facility] Work Phone: Start: 05-13-2023 End: 05-13-[address] Jose Petty Work Phone: [facility]-Laboratory, Phy Office 3rd Flr Start: 03-19-2023 End: 03-19-[address] Jose Petty Work Phone: [facility]astroenterology Work Phone: Start: 02-20-2023 Non-patient / Non-visit Dr. Jose Petty Work Phone: [facility] Start: 02-20-2023 End: 02-20-2023 Admission to same day surgery center [facility] Work Phone: Start: 02-20-2023 End: 02-20-[address] Jose Petty Work Phone: [facility] Work Phone: Start: 05-09-2022 End: 05-09-2022 ambulatory [facility] Work Phone: Start: 05-09-2022 End: 05-09-2022 Patient encounter procedure [facility]-Pulmonary Services/Neurology Start: 05-07-2022 End: 05-07-2022 ambulatory [facility] Work Phone: Start: 05-07-2022 End: 05-07-2022 Patient encounter procedure [facility]-Laboratory, Phy Office 3rd Flr Start: 09-22-2021 End: 09-22-2021 Emergency department patient visit [facility]-Emergency Department Start: 01-08-[address] [facility] Procedures Date Procedure Procedure Detail Performing Clinician Start: 07-25-2023 Radiography of ankle Start: 02-20-[address] Jose Petty Work Phone: Influenza Types A,B Direct FA (FABIO) Respiratory syncytia l virus antigen assay Plan of Treatment Date Care Activity Detail Author Start: 07-25-2023 [facility] Start: 02-20-2023 Egd flexible foreign body removal EGD REMOVE FOREIGN BODY [facility] Start: 02-20-2023 Egd insert guide wire dilator passage esophagus EGD GUIDE WIRE INSERTION [facility] Start: 02-20-2023 Egd transoral biopsy single/multiple EGD BIOPSY SINGLE/MULTIPLE [facility] Start: 02-20-2023 Esophagogastroduodenoscopy EGD (Not Applicable) [facility] Start: 02-20-2023 Hospital admission, emergency, from emergency room, medical nature [facility] Start: 02-20-2023 Patient discharge [facility] Patient Education [facility] Work Phone: Patient referral [facility] Work Phone: Immunizations Immunization Date Immunization Notes Care Provider Fa [facility]ty 09-04-2020 Covid (Pfizer) [facility] 08-14-2020 Covid (Pfizer) [facility] Payers Date Payer Category Payer Private Health Insurance [id number] 2024 Self-pay 2012 Private Health Insurance [id number] Unknown [id number] Unknown [id number] Unknown [id number] Unknown [id number] Social History Date Type Detail Facility Start: 09-22-2021 End: 07-25-2023 Tobacco smoking status NHIS Unknown if ever smoked [facility] Start: 1960 Sex Assigned At Male [facility] Goals Date Patient Goal Desired Activity /State Mental Status Date Assessment Result Facility 02-20-2023 Cognitive function Level Of Cons ciousness Awake;Drowsy [facility] Work Phone: 02-20-2023 Cognitive function Level Of Cons ciousness Awake;Alert;Appropriate [facility] Work Phone: 09-22-2021 Cognitive function Level Of Cons ciousness Awake;Alert;Appropriate;Follow s Commands [facility] Work Phone: Procedure note 02-20-2023 Note Date & Type Note Facility 02-20-2023 Procedure note [facility] Procedure note 02-20-2023 Note Date & Type Note Facility 02-20-2023 Procedure note [facility] Discharge summary 02-20-2023 Note Date & Type Note Facility 02-20-2023 Discharge summary Note Date/Time February 20, 2023 2:10am [facility] Medical Records Department [address] [place] [address] Emergency Department Summary 02/20/23 MR#: [id number] Acct: [id number] Name: EFREN GOMES Rep #:[id number] : 1960 62 From: Thiago Garza MD PCP: Dr. Jose Petty MD Status:REG E R Location: ED HPI History of Present Illness Chief Complaint: Foreign Body Informant: patient Narrative Narrative: Patient presents for-5 hours after eating a hot dog and feeling like part of it got stuck in his esophagus. No shortness of breath or choking associated with this, happened as it was going down after he swallowed it. He has been trying to drink cola and intermittently vomiting every time she tries to drink. He points to the lower substernal. States he has had this happen before, he has had an EGD in the past but no stretching. He denies vomiting any blood he takesno anticoagulants. Other than omeprazole that he takes inconsistently he has noother prescription medications. [facility] Medical History GERD (gastroesophageal reflux disease) Home Medications omeprazole 40 mg capsule,delayed release 40 mg PO DAILY 02/20/23 [History Last Taken Unknown] Allergy/AdvReac Type Severity Reaction Status Date / Time No Known Allergies Allergy Verified 02/20/23 00:56 Social History Smoking Status: Never smoker ROS ROS ED Constitutional Constitutional ED: Denies chills or fever(s) Eyes Eyes: Denies change in vision or diplopia ENT ENT ED: Denies rhinorrhea or sore throat Cardiovascular Cardiovascular: Denies chest pain or palpitations Respiratory/Chest Respiratory/Chest: Denies cough or dyspnea Gastrointestinal Gastrointestinal: Reports as per HPI and vomiting; Denies abdominal pain, diarrhea or nausea Genitourinary Genitourinary ED: Denies dysuria or hematuria Musculoskeletal Musculoskeletal: Denies back pain or neck pain Integumentary Denies abscess or rash Neurologic Neurologic: Denies headache(s), paresthesias or weakness Psychiatric Psychiatric: Denies anxiety or suicidal thoughts EXAM Physical Exam Const Vital Signs: 02/20/23 00:54 02/20/23 01:16 02/20/23 02:56 Temperature 98.2 F Temperature Source Temporal Pulse Rate 82 74 Respiratory Rate 17 13 Respiratory Effort Short of Breath Blood Pressure 141/91 H 131/81 H Blood Pressure Mean 107 97 Pulse Ox 98 94 Oxygen Delivery Method Room Air Room Air Positive well nourished and well developed General Appearance ED: well developed and NAD HEENT Reports moist mucous membranes normocephalic and atraumatic Eyes PERRL and EOMs intact bilaterally Neck full ROM and supple Resp normal respiratory effort and clear to auscultation bilaterally Cardio regular rate, regular rhythm and no murmurs GI non-tender and non-distended Auscultation: normoactive bowel sounds Palpation: soft Back/Spine no CVA tenderness General Back: other FROM Extremity normal to inspection General Extremety ED: Negative for edema, pulses abnormal or tenderness General Extremity: Negative for edema or pulses abnormal Neuro oriented x3, CN's II-XII intact bilaterally and no sensory deficits noted Sensorium / Orientation: awake and alert Motor Exam: strength 5/5 throughout Skin no rashes or lesions noted and no wounds MDM MDM MDM Narrative Medical decision making narrative: Patient was given 1 mg of glucagon IM. 45 minutes later, I had him drink some fresh carbonated cola, attempted do a maneuver to increase carbonation, however after 2 attempts this resulted in episodes of vomiting and without resolution ofthe obstruction. As long as patient does not drink he is clinically stable and comfortable relatively. Therefore discussed with GI. Given the hour, and the time it would take endoscopy to arrive emergently as well as the fact that if the patient is not drinking he is comfortable and able to rest and sleep, we aregoing to wait a couple more hours and have GI and endoscopy take him to the endoscopy unit first thing in the morning for food bolus removal and further evaluation. Patient is comfortable with that plan. He will be observed here until he goes to endoscopy, and in the meantime he is maintained n.p.o. and given IV fluids. Discharge Plan Triage Chief Complaint: Foreign Body ED Provider: Thiago Garza Dx/Rx/DC Orders Clinical Impression: Food impaction of esophagus Instructions: ED Esophageal Foreign Body, Resolved Prescriptions: Continued omeprazole 40 mg capsule,delayed release(DR/EC) 40 mg PO DAILY Primary Care Provider: Jose Petty Chi Referrals: Figueroa Harrison DO [Med Staff - Active Staff] - (as directed) Jose Petty Chi, MD [Primary Care Provider] - Disposition Disposition: Home, Self Care What to do if you have Problems For any increased pain, shortness of breath, bleeding, nausea or vomiting, chestpain, or any unexpected problems, contact your Primary Care Provider. Call [facility] ([phone]) or report to the closest Emergency Room. Call 911 if necessary. 02/20/23336 <Electronically signed by Thiago Garza MD> Cosigner Signature (if applicable): CC: Dr. Jose Petty MD ~ Signed [facility] Work Phone: Evaluation note Note Date & Type Note Facility Evaluation note No assessment information availa ble [facility] Work Phone: Evaluation note Note Date & Type Note Facility Evaluation note Diagnosis Onset Date Food impaction of esophagus acute [facility] Work Phone: Evaluation note Note Date & Type Note Facility Evaluation note Diagnosis Onset Date Food impaction of esophagus acute Eosinophilic esophagitis chr onic [facility] Work Phone: History and physical note Note Date & Type Note Facility History and physical note Note Date/Time February 20, 2023 6:44[facility] Medical Records Department [address] [place] [address] History & Physical Exam 02/20/23 0644 MR#: [id number] Acct: [id number] Name: EFREN GOMES Rep #:[id number] : 1960 62 From: Figueroa Harrison DO PCP: Dr. Jose Petty MD Status:REG S DC Location: [place] [address] HPI - General General Date of Admission: 02/20/23 Date of Service: 02/20/23 Chief Complaint: Food impaction HPI Narrative EFREN ELISEO, is a 62 M who presents after eating a hot dog and feeling like partof it got stuck in his esophagus. No shortness of breath or choking associated with this, happened as it was going down after he swallowed it. He has been trying to drink cola and intermittently vomiting every time she tries to drink. He points to the lower substernal. States he has had this happen before, he hashad an EGD in 2019 in the past but no dilation. He denies vomiting any blood hetakes no anticoagulants. Other than omeprazole that he takes inconsistently he has no other prescription medications. [facility] Medical History GERD (gastroesophageal reflux disease) Home Medications omeprazole 40 mg capsule,delayed release 40 mg PO DAILY 02/20/23 [History Last Taken Unknown] Allergy/AdvReac Type Severity Reaction Status Date / Time No Known Allergies Allergy Verified 02/20/23 00:56 Social History Smoking Status: Never smoker ROS Review of Systems ROS Unobtainable: other Constitutional Constitutional: Denies fatigue, fever(s), poor appetite, weight gain or weight loss ENT HEENT: Denies mouth lesions Cardiovascular Cardiovascular: Denies abdominal bloating, abdominal edema or abdominal pain Respiratory/Chest Respiratory/Chest: Denies change in mental status, change in phlegm color, chestcongestion or chest tightness Gastrointestinal Gastrointestinal: Denies belching, bloating, change in bowel habits, change in stool character, chewing difficulty, coffee ground emesis, constipation, cramping, diarrhea, dyspepsia, dysphagia, early satiety, excessive flatus, fecalincontinence, heartburn, hematemesis, hematochezia, hemorrhoids, loose stools, melena, nausea, odynophagia, rectal bleeding, tenesmus, vomiting or weight changes Genitourinary Genitourinary: Denies abdominal discomfort, burning urination or itching Musculoskeletal Musculoskeletal: Reports as per HPI; Denies muscle weakness or myalgias Integumentary Integumentary: Denies jaundice Neurologic Neurologic: Denies lack of coordination or weakness Psychiatric Psychiatric: Denies confusion, depression, memory loss, mood swings, paranoia orsuicidal ideation Endocrine Endocrinology: Denies systems reviewed and no addt'l complaints, except as documented Hematologic/Lymphatic Hematologic/Lymphatic: Denies anemia, easy bleeding, easy bruising or lymphadenopathy Allergic/Immunologic Allergic/Immunologic: Denies systems reviewed and no addt'l complaints, except as documented Vital Signs Vital Signs Vital Signs: 02/20/23 00:54 02/20/23 01:16 02/20/23 02:56 Temperature 98.2 F Temperature Source Temporal Pulse Rate 82 74 Respiratory Rate 17 13 Respiratory Effort Short of Breath Blood Pressure 141/91 H 131/81 H Blood Pressure Mean 107 97 Pulse Ox 98 94 Oxygen Delivery Method Room Air Room Air 02/20/23 03:00 02/20/23 04:00 02/20/23 05:00 Temperature Temperature Source Pulse Rate 65 68 68 Respiratory Rate 16 16 16 Respiratory Effort Blood Pressure 134/82 H 130/86 H 131/82 H Blood Pressure Mean 99 100 98 Pulse Ox 99 99 99 Oxygen Delivery Method 02/20/23 06:00 02/20/23 06:28 Temperature Temperature Source Pulse Rate 65 68 Respiratory Rate 16 16 Respiratory Effort Blood Pressure 124/71 H 124/71 H Blood Pressure Mean 88 88 Pulse Ox 99 99 Oxygen Delivery Method Weight Weight: 196 lb 3.382 oz Body Mass Index (BMI) 26.6 Physical Exam Const alert, oriented x3, no apparent distress, healthy appearing and well nourished General Appearance: cooperative, comfortable, well kempt and well developed Orientation / Consciousness: awake and oriented to person HEENT Head and Scalp: normocephalic and atraumatic Face and Sinus: normal facial exam Mouth: oral and palatal mucosa normal Eyes General Eye: normal appearance of both eyes Neck full ROM Lymph Lymphatic: no lymphadenopathy noted Chest inspection of chest normal Resp normal respiratory effort and no use of accessory muscles Cardio regular rate and regular rhythm GI normal to inspection, nondistended, normoactive bowel sounds, soft to palpation,non-tender, non-distended and no masses Auscultation: normoactive bowel sounds Palpation: soft Percussion: normal to percussion Rectal Exam: visual inspection normal and normal sphincter tone no CVA tenderness Back/Spine no CVA tenderness and normal ROM Extremity normal to inspection Peripheral Pulses: Yes pulses 2+ throughout Skin no rashes or lesions noted General Skin Exam: no breakdown, elasticity normal and turgor normal Neuro oriented x3 Motor Exam: strength 5/5 throughout Psych mental status grossly normal Appearance: grossly normal Attitude: calm Activity / Motor Behavior: appropriate eye contact Speech: normal speech Thought Process: normal thought process Thought Content: normal thought content Attention / Concentration: attention grossly intact Memory / Cognition: memory grossly intact Insight: insight good Judgement: judgement good Assessment & Plan Assessment/Plan (1) Food impaction of esophagus: QUALIFIERS: Encounter type: initial encounter Qualified Code(s): T18.128A - Food in esophagus causing other injury, initial encounter; W44.F3XA -Food entering into or through a natural orifice, initial encounter PLAN: He will undergo removal of esophageal food impaction. He was explained alternatives, risk, benefits include not withstanding bleeding, infection, sepsis, perforation, need for emergent surgery . He will have an ASA of 2. 02/20/23 0647 <Electronically signed by Figueroa Harrison DO> Cosigner Signature (if applicable): CC: Dr. Jose Petty MD; Figueroa Harrison DO~ Signed [facility] Work Phone: Summary Purpose Family History No Family History Records FoundNo Family History Records FoundNo Family History Records Found Advance Directives No Advanced Directives Records Found Advance Directive Response Recorded Date/ Time Living Will No September 22, 2021 1 :17pm Power of Project Account Manager No September 22, 2021 1:17pm Advance Directive Response Recorded Date/ Time Living Will No September 22, 2021 1 2:17pm Power of Project Account Manager No September 22, 2021 12:17pm Advance Directive Response Recorded Date/ Time Living Will No February 20 12:56am Power of Project Account Manager No February 20, 2023 12:56am Advance Directive Response Recorded Date/ Time Living Will No February 19 11:56pm Power of Project Account Manager No February 19, 2023 11:56pm Advance Directive Response Recorded Date/ Time Name of Medical Power of Project Account Manager Monse July 25, 2023 5:17am Living Will Yes July 25, 2023 5:17am Power of Project Account Manager Yes July 24 5:17am Procedure Findings Note Operative Note (Enc) (GENSWS ) Progress Notes: Jc Meehan MD 10/23/2018 9:10 AM Signed OPERATIVE NOTATION FOR [facility] SURGICAL PROCEDURE. October 22, 2018 Efren Gomes 1960 [id number] male PROCEDURE: EGD WITH REMOVAL OF FOREIGN BODY - 17122- SURGEON: Arnoldo Meehan M.D. FACS OPERATIONS RECRUITER: None DEPT: PROVIDER: [id number] Meehan MD POS: [id number] ROOM DIAGNOSIS: (T18.108A) Esophageal foreign body, initial encounter (primary encounter diagnosis) ASA CLASS: 2E - mild emergency FINDINGS: COMPLICATIONS: None PMHx - No past medical history on file. COMORBIDITIES - Chronic Alcohol Abuse Post Op Occurrences - None Wound Classification - Clean Contaminated Operative note dictated in the [facility] dictation system. Jc Meehan MD Encounter Status:Closed by JC MEEHAN MD on 10/23/18 Chief Complaint and Reason for Visit Chief Complaint FOOD STUCK IN THROAT Chief Complaint CHILLS WITHOUT FEVER Chief Complaint ESOPHAGEAL OBSTRUCTI ON REMOVAL Reason for Visit Food impaction of es ophagus Chief Complaint ESOPHAGEAL OBSTRUCTI ON REMOVAL ESOPHAGEAL OBSTRUCTION REMOVAL Reason for Visit Food impaction of es ophagus Chief Complaint ESOPHAGEAL OBSTRUCTI ON REMOVAL ESOPHAGEAL OBSTRUCTION REMOVAL Seen in ED Reason for Visit Food impaction of es ophagus Eosinophilic esophagitis Chief Complaint left ankle Additional Source Comments (unrecognized sect ion and content) No Status Records FoundNo Status Records FoundNo Status Records Found INFORMATION SOURCE (unrecogn ized section and content) DATE CREATED AUTHOR 11/03/2017 [facility] [employer] [facility] DATE CREATED AUTHOR AUTHOR'S ORGANIZ ATION 10/23/2018 [facility] DATE CREATED AUTHOR AUTHOR'S ORGANIZ ATION 10/30/2024 [facility] Goals (unrecognized section and content) Goals may be documented in a n alternate sectionGoals may be documented in an alternate sectionGoals may be documented in an alternate sectionGoals may be documented in an alternate sectionGoals may be documented in an alternate section Care Teams (unrecognized sec tion and content) Team Status: Active Member Role Status Dates Dr. Jose Petty MD Family Provider Active Dr. Jose Petty MD Primary Care Provider Active Team Status: Active Member Role Status Dates Dr. Jose Petty MD Primary Care Provider Active Dr. Thiago Garza MD Emergency Provider Active Dr. Figueroa Harrison DO Attending Provider, Referring Provider Active Team Status: Active Member Role Status Dates Dr. Jose Petty MD Primary Care Provider Active Dr. Thiago Garza MD Emergency Provider Active Dr. Figureoa Harrison DO Attending Provid er, Referring Provider, Other Provider Active Team Status: Inactive Member Role Status Dates Dr. Jose Petty MD Primary Care Provider Active Dr. Thiago Garza MD Emergency Provider Active Dr. Figueroa Harrison DO Attending Provider, Referring Provider Active Team Status: Inactive Member Role Status Dates Dr. Jose Petty MD Primary Care Provider, Referring Provider Active Dr. Figueroa Harrison DO Attending Provider Active Team Status: Inactive Member Role Status Dates Dr. Jose Petty MD Primary Care Provider, Attending Provider Active Team Status: Inactive Member Role Status Dates Dr. Jose Petty MD Primary Care Provider Active Dr. Thalia Ontiveros MD Emergency Provider Active FOR RECORDS PERTAINING TO PATIENTS WHO ARE [...] BE BASED ON THE PRIMARY CLINICAL RECORDS. [employer] provides no warranty or guarantee of the accuracy or completeness of information in this document.
[2024-10-31] MEDS: Lactated Ringers 1,000 ML 15 ML IV (06:03)
--- NOTE | 2024-10-31 06:30 | EGD_PTH ---
PATIENT: CHENTE GOMES LOC: EN U#:[id number] AGE/SX: 64/M ROOM: RE10/31/[address]: Dr. Figueroa Harrison DO : 1960 BED: DIS: 10/31/2024 SPEC #: [id number] RECD: 10/31/24 11:09 STATUS: JOB JANETTE #: [id number] BRIGITTE: 10/31/24 06:[address]: Figueroa Harrison DEPT: SURGICAL PATHOLOGY RECD BY: Maurice Brunson ENTERED: 10/31/24 11:44 SP TYPE: EGD BIOPSY OT DR: Dr. Jose Petty MD Tissues: A - Esophagus, NOS B - Duodenum, NOS Procedures: Immunohistochemical Stains Special Stain Group I Surgery Specimen Level IV GMS Stain (control) HEADER OPERATION: Colonoscopy, EGD and biopsy and dilatation PRE-OP DIAGNOSIS: Eosinophilic esophagitis, screening TISSUE SUBMITTED: A- Random esophagus biopsy, B- Duodenum biopsy MICROSCOPIC DIAGNOSIS A. Esophagus, random biopsy: -Squamous mucosa with reactive change and rare eosinophils (up to 2/high power field). -IHC is negative for HSV (herpes simples virus types I&II). -PASD for fungal organisms is pending and will be reported in an addendum. -Columnar mucosa negative for goblet cell metaplasia. B. Duodenum, biopsy: -Normal villous architecture, negative for increased intraepithelial lymphocytes. -Troy gland hyperplasia with gastric foveolar metaplasia and acute inflammation, suggestive of peptic injury. MICROSCOPIC DESCRIPTION Slides are reviewed. All matched controls reacted appropriately. These tests were developed and their performance characteristics determined by [facility]. They may not have been cleared or approved by the U.S. Food and Drug Administration. The FDA has determined that such clearance or approval is not necessary.? The above immunohistochemical/dualISH?markers are reviewed by the Pathologist. GROSS DESCRIPTION A. Received in fixative is one container labeled with the patient's name and designated Random esophagus biopsy. The specimen consists of multiple irregular fragments of light millan soft tissue that in aggregate measure 1.5 x 0.5 x 0.1 cm. The specimen is totally submitted in one cassette. B. Received in fixative is one container labeled with the patient's name and designated Duodenum biopsy. The specimen consists of three irregular fragments of light millan soft tissue that in aggregate measure 0.3 to 0.5 cm. The specimen is totally submitted in one cassette. AL/mr 10/31/2024 CPT:[id number] ADDENDUM ADDENDUM ADDENDUM ADDENDUM ADDENDUM 11/22/2024 15:53 ADDENDUM 11/22/2024 15:53 ADDENDUM 11/22/2024 15:53 ADDENDUM 11/22/2024 15:53 ADDENDUM 11/22/2024 15:53 A. The PASD stain is negative for fungal organisms within the tissue. B. IHC for H pylori is negative.
--- NOTE | 2024-10-31 06:53 | HP.PCM_ITS ---
HPI - General General Date of Admission: 10/31/24 Date of Service: 10/31/24 Chief Complaint: Eosinophilic esophagitis and CRS HPI Narrative CHENTE GOMES, is a 64 M who presents for esophageal dysphagia and screening c olonoscopy *[facility] ED 02.20.23 with food impaction requiring EGD by GI for removal. ? EGD 02.20.23 mucosal changes of EOE >20/field; food bolus, removed; moderate Schatzki ring, Savary 51F; small hiatal hernia Contact 03.13.23 with results; reports he was diagnosed with EOE many years ago but was unaware this was a progressive disease, required PPI management and that ongoing monitoring needed to be performed. Recommended restart of PPI (he had stopped). OV .01.31 for the last 15 years he has been having dysphagia; this is the second time requiring endoscopic intervention. PCP previously referred for allergen testing and has coffee sensitivity, notes alcohol is also a difficulty which he eliminated. Since conversation 03.13.23 he has been taking PPI QD (he does miss some doses) and reports he feels significantly better. EGD eosinophils (>20 per high power field), negative for Alvarado's - Esophageal mucosal changes consistent with eosinophilic esophagitis. - Food in the lower third of the esophagus. Removal was successful. - Moderate Schatzki ring. Dilated. - Small hiatal hernia. - Normal stomach. - No gross lesions in the duodenal bulb. - Biopsies were taken with a cold forceps for evaluation of eosinophilic esophagitis. - he is asymptomatic - requesting an EGD and colonoscopy - states February 2023 was his 3rd episode of food impaction - states his triggers were alcohol and coffee - no more alcohol and - reports now his episodes of dysphagia are very infrequent - and when he does have an episode he stands up and food passes - denies any any N/V - denies any weight loss - denies any change in bowel habits - denies any bleeding - Mother with colon CA at 77y/o - reports his colonoscopy was 10 years ago - normal [facility] Medical History Loss of hearing Wears glasses Alcohol use Restless legs Injury of back Difficulty swallowing Snuff user Asthma Leg cramps History of stress test History of rheumatic fever Insomnia Hyperlipidemia GERD (gastroesophageal reflux disease) Home Medications ?Medication ?Instructions ?Recorded ?Last Taken ?Type omeprazole 40 mg capsule,delayed 40 mg PO DAILY PRN GE RD 10/31/24 Unknown History release Allergy/AdvReac Type Severity Reaction Status Date / Time No Known Allergies Allergy Verified 10/31/24 05:50 Family History Father Hypertension Surgical History Hx of colonoscopy History of esophagogastroduodenoscopy (EGD) Social History Smoking Status: Former smoker Smokeless tobacco user: chewing tobacco alcohol intake: never substance use type: does not use ROS Constitutional Constitutional: Denies fatigue, fever(s), poor appetite, weight gain or weight loss Gastrointestinal Gastrointestinal: Denies belching, bloating, change in bowel habits, change in stool character, chewing difficulty, coffee ground emesis, constipation, cramping, diarrhea, dyspepsia, dysphagia, early satiety, excessive flatus, fecal incontinence, heartburn, hematemesis, hematochezia, hemorrhoids, loose stools, melena, nausea, odynophagia, rectal bleeding, tenesmus, vomiting or weight changes Vital Signs Vital Signs Vital Signs: 10/31/24 05:53 10/31/24 05:54 Temperature 97.7 F L Temperature Source Temporal Pulse Rate 83 Respiratory Rate 16 Respiratory Pattern Normal Blood Pressure 135/76 H Blood Pressure Mean 95 Blood Pressure Source Monitor Blood Pressure Position Semi-Fowlers Blood Pressure Location Left Arm Pulse Ox 96 Oxygen Delivery Method Room Air Weight Weight: 197 lb 3.2 oz Body Mass Index (BMI) 27.5 Physical Exam Const alert, oriented x3, no apparent distress and healthy appearing General Appearance: cooperative GI normal to inspection, nondistended, normoactive bowel sounds, soft to palpation, non-tender and non-distended Percussion: normal to percussion Rectal Exam: deferred Assessment & Plan Assessment/Plan (1) Screening for colon cancer: (2) Eosinophilic esophagitis: PLAN: Assessment and Plan Assessment and Plan (1) Screening for colon cancer: Status: Acute (2) Family history of colon cancer in mother: Status: Acute (3) Eosinophilic esophagitis: Status: Chronic Medications: New peg 3350-electrolytes 236-22.74-6.74 -5.86 gram (Golytely) take as directed for split dose bowel prep 240 mL PO Q10M 4,000 mL 0RF Plan 64y/o male presents for follow-up. PMH is significant for EoE, GERD, HLD, anxiety, and depression. EGD was last performed February 2023 secondary to FBO. Biopsies were consistent with EoE (20/hpf). He reports eliminating EtOH and coffee have resolved his symptoms and he does not require daily use of PPI. We have discussed these are not typical food triggers for EoE, but common with GERD. His family history is significant for mother with colon cancer. He reports his last colonoscopy was unremarkable 10 years ago. I have scheduled him for a colonoscopy and EGD. Patient Instructions: - Colonoscopy and EGD PPIs are the most effective medical treatment for GERD. Some medical studies have identified an association between the long-term use of PPIs and the development of numerous adverse conditions including intestinal infections, pneumonia, stomach cancer, osteoporosis-related bone fractures, chronic kidney disease, deficiencies of certain vitamins and minerals, heart attacks, strokes, dementia, and early . Those studies have flaws, are not considered defin itive, and do not establish a [id number] relationship between PPIs and the adverse conditions. High-quality studies have found that PPIs do not significantly increase the risk of any of these conditions except intestinal infections. Nevertheless, we cannot exclude the possibility that PPIs might confer a small increase in the risk of developing these adverse conditions. For the treatment of GERD, gastroenterologists generally agree that the well- established benefits of PPIs far outweigh their theoretical risks.
--- NOTE | 2024-10-31 06:54 | PRE.ANES_ITS ---
ASA Classification* ASA Classification ASA Classification: 2 Assessment & Plan Anesthesia* Anesthesia Assessment Anesthesia Assessment: Discussed sedation and/or anesthesia options, risks, benefits, and alternatives with patient/parents/legal guardian/POA. Questions invited. The patient/parents/legal guardian/POA seems to understand and agrees to proceed with anesthesia plan. Reviewed the physical assessment, medical history, allergy history and patient home medications list prior to surgery/procedure/anesthetic and documented any changes. Performed airway and anesthesia risk assessments. Anesthesia Type Anesthesia Type: MAC History Source History Obtained from:: Patient and Chart Anesthesia Focused Assessment* Temperature: 97.7 F Pulse Rate: 83 Blood Pressure: 135/76 Respiratory Rate: 16 Pulse Ox: 96 Oxygen Delivery Method: Room Air Airway Assessment Mouth opens: >3 cm Mallampati Score: I Teeth Condition: Intact Neck Range of motion (ROM): Full ROM Labs Anesthesia Preop lab: CBC WBC 9.4 K/mm3 (4.4-11.0) 05/17/24 15:05/17/24 RBC 5.62 M/mm3 (4.6-6.2) 05/17/24 15:05/17/24 Hgb 15.8 g/dL (13.0-16.5) 05/17/24 15:05/17/24 Hct 47.1 % (40-54) 05/17/24 15:05/17/24 Plt Count 263 K/mm3 (150-450) 05/17/24 15:27 05/17/24 CHEMISTRY Potassium 4.4 mmol/L (3.5-5.1) 05/17/24 15:05/17/24 Sodium 136 mmol/L (136-145) 05/17/24 15:05/17/24 BUN 15 mg/dL (7-18) 05/17/24 15:05/17/24 Creatinine 1.14 mg/dL (0.70-1.30) 05/17/24 15:05/17/24 Glucose 82 mg/dL (74-106) 05/17/24 15:05/17/24 TSH 2.410 uIU/mL (0.358-3.740) 05/17/24 15:12/02 COAG Pre-Assessment Diagnosis/Proposed Procedure Planned Operative Procedure(s): EGD/CSCOPE Anesthesia History Anesthesia History - parachute/combatant diver officer: Anesthesia History - parachute/combatant diver officer Hx Hospitalization No 10/27/24 16:06 Any Problems With Anesthesia No 10/27/24 16:06 Cholinesterase deficiency No 10/27/24 16:06 You/Your Family Experience No 10/27/24 16:06 fever (hyperthermia) with Relationship Recent Exposure to Contagious No 10/31/24 05:53 Disease Does patient have nerve No 10/27/24 16:06 stimulator Patient instructed to have device shut off --Does patient have Pacemaker No 10/31/24 05:54 or ICD? When Was Last Pacemaker Check QUESTION #4 FULL TEXT: You/Your Family Experience fever (hyperthermia) with Anesthesia Last Oral Intake Last Oral intake: Last Oral Intake NPO since 23:00 10/31/24 05:54 Meds taken in AM with sips of water? Meds patient instructed to take am of surgery PONV PONV - parachute/combatant diver officer: PONV - parachute/combatant diver officer Female No 10/27/24 16:06 HX of Motion Sickness No 10/27/24 16:06 HX of N/V After Surgery No 10/27/24 16:06 Non-Smoker Yes 10/27/24 16:06 Duration of Surgery greater No 10/27/24 16:06 than 60 minutes Number of Risk Factors 1 10/27/24 16:06 PONV Score Low Risk 10/27/24 16:06 Height & Weight Height & Weight: Anesthesia: Height & Weight Height 5 ft 11 in 10/31/24 05:54 Weight: 89.448 kg 10/31/24 05:54 Body Mass Index (BMI) 27.5 10/31/24 05:54 Respiratory Assessment Respiratory Assessment - parachute/combatant diver officer: Respiratory Tract Infection Hx - parachute/combatant diver officer Hx Respiratory Tract Infection No 10/27/24 16:06 STOP Sleep Apnea STOP Sleep Apnea - parachute/combatant diver officer: STOP Sleep Apnea - parachute/combatant diver officer Hx Hypertension No 10/27/24 16:06 Hx Sleep Apnea No 10/27/24 16:06 CPAP BIPAP Do you snore loudly (louder No 10/27/24 16:06 than talking or can be heard Do you often feel tired/ Yes 10/27/24 16:06 fatigued/ sleepy during daytime? Has anyone observed you stop No 10/27/24 16:06 breathing during sleep? STOP Results Negative 10/27/24 16:06 QUESTION #5 FULL TEXT : Do you snore loudly (louder than talking or can be heard through closed doors)? 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 Specify any problems Hx of Preganancy in last 3 N/A 10/27/24 16:06 Months Nurse Filling Out Transfusion DSCHRIBER 10/27/24 16:06 & Questions: Date: 10/27/24 10/27/24 16:06 Time: 16:08 10/27/24 16:06 Patient unable to answer at this time (ie. confused, unrespo /Reproduction History /Reproductive History - parachute/combatant diver officer: /Reproductive Hx- parachute/combatant diver officer Hx Now No 10/27/24 16:06 Gestational Age (in weeks): EDC: Hx Hx Para Hx Section SAB No 10/27/24 16:06 Active Medications Active Medications: Current Medications Generic Name Dose Route Start Last Admin Trade Name Freq PRN Reason Stop Dose Admin Lactated Ringer's 1,000 mls @ 15 mls/hr 10/31/24 05:45 10/31/24 06:03 IV 15 mls/hr .Q48H MILENA Administration PFSH Medical History Loss of hearing Wears glasses Alcohol use Restless legs Injury of back Difficulty swallowing Snuff user Asthma Leg cramps History of stress test History of rheumatic fever Insomnia Hyperlipidemia GERD (gastroesophageal reflux disease) Home Medications ?Medication ?Instructions ?Recorded ?Last Taken ?Type omeprazole 40 mg capsule,delayed 40 mg PO DAILY PRN GE RD 10/31/24 Unknown History release Allergy/AdvReac Type Severity Reaction Status Date / Time No Known Allergies Allergy Verified 10/31/24 05:50 Family History Father Hypertension Surgical History Hx of colonoscopy History of esophagogastroduodenoscopy (EGD) Social History Smoking Status: Former smoker Smokeless tobacco user: chewing tobacco alcohol intake: never substance use type: does not use Review of Systems (Anesthesia) ROS Narrative System reviewed and no additional complaints, except as documented.
--- NOTE | 2024-10-31 07:38 | OP.EGD_ITS ---
Patient Name: Efren Stevens Procedure Date: 10/31/2024 6:13 AM Date of : 1960 Age: 64 Procedure: Upper GI endoscopy Indications: Dysphagia Providers: DO Isaiah Riddle MD: Jose Petty MD Medicines: Monitored Anesthesia Care Patient Profile: This is a 64 year old male. Refer to note in patient chart for documentation of history and physical. Patient has symptoms of chronic dysphagia and dysphagia with both liquids and solids. Complications: No immediate complications. Procedure: Pre-Anesthesia Assessment: - Prior to the procedure, a History and Physical was performed, and patient medications and allergies were reviewed. The patient is competent. The risks and benefits of the procedure and the sedation options and risks were discussed with the patient. All questions were answered and informed consent was obtained. Patient identification and proposed procedure were verified by the physician in the pre-procedure area. Mental Status Examination: alert and oriented. Airway Examination: normal oropharyngeal airway and neck mobility. Respiratory Examination: clear to auscultation. CV Examination: normal. Prophylactic Antibiotics: The patient does not require prophylactic antibiotics. Prior Anticoagulants: The patient has taken no anticoagulant or antiplatelet agents except for NSAID medication. ASA Grade Assessment: II - A patient with mild systemic disease. After reviewing the risks and benefits, the patient was deemed in satisfactory condition to undergo the procedure. The anesthesia plan was to use monitored anesthesia care (MAC). Immediately prior to administration of medications, the patient was re-assessed for adequacy to receive sedatives. The heart rate, respiratory rate, oxygen saturations, blood pressure, adequacy of pulmonary ventilation, and response to care were monitored throughout the procedure. The physical status of the patient was re-assessed after the procedure. After obtaining informed consent, the endoscope was passed under direct vision. Throughout the procedure, the patient's blood pressure, pulse, and oxygen saturations were monitored continuously. The colonoscope was introduced through the mouth, and advanced to the second part of duodenum. The upper GI endoscopy was accomplished without difficulty. The patient tolerated the procedure well. Scope In: 7:11:11 AM Scope Out: 7:18:08 AM Total Procedure Duration Time 0 hours 6 minutes 57 seconds Findings: Mucosal changes including ringed esophagus and small-caliber esophagus were found in the middle third of the esophagus and in the lower third of the esophagus. Biopsies were obtained from the proximal and distal esophagus with cold forceps for histology of suspected eosinophilic esophagitis. Verification of patient identification for the specimen was done. Estimated blood loss was minimal. Abnormal motility was noted in the esophagus. The cricopharyngeus was abnormal. There are extra peristaltic waves in the esophageal body. The distal esophagus/lower esophageal sphincter is spastic, but gives up passage to the endoscope. Tertiary peristaltic waves are noted. A guidewire was placed and the scope was withdrawn. Dilation was performed with a Savary dilator with no resistance at 57 Fr. The dilation site was examined and showed moderate mucosal disruption. A hiatal hernia was present. No other significant abnormalities were identified in a careful examination of the stomach. Patchy mildly erythematous mucosa without active bleeding and with no stigmata of bleeding was found in the duodenal bulb. Biopsies were taken with a cold forceps for histology. Verification of patient identification for the specimen was done. Estimated blood loss was minimal. Impression: - Esophageal mucosal changes secondary to eosinophilic esophagitis. - Abnormal esophageal motility, suspicious for esophageal spasm. Dilated. - Hiatal hernia. - Erythematous duodenopathy. Biopsied. - Biopsies were taken with a cold forceps for evaluation of eosinophilic esophagitis. Recommendation: - Discharge patient to home. - Continue present medications. Procedure Code(s): --- Professional --- 78331, Esophagogastroduodenoscopy, flexible, transoral; with insertion of guide wire followed by passage of dilator(s) through esophagus over guide wire 48743, 59,51, Esophagogastroduodenoscopy, flexible, transoral; with biopsy, single or multiple CPT copyright 2021 [employer]. All rights reserved. The codes documented in this report are preliminary and upon trimmer hand review may be revised to meet current compliance requirements. Figueroa Harrison DO 10/31/2024 7:37:56 AM This report has been signed electronically. Number of Addenda: 0 Note Initiated On: 10/31/2024 6:13 AM
--- NOTE | 2024-10-31 07:39 | OP.CCLET_ITS ---
10/31/2024 Jose Petty MD [address] [place] [address] Re : Upper GI endoscopy procedure for Efren Stevens Dear Dr. Petty This procedure was performed on Thursday, October 31, 2024. My impressions and recommendations are as follows: Impressions : - Esophageal mucosal changes secondary to eosinophilic esophagitis. - Abnormal esophageal motility, suspicious for esophageal spasm. Dilated. - Hiatal hernia. - Erythematous duodenopathy. Biopsied. - Biopsies were taken with a cold forceps for evaluation of eosinophilic esophagitis. Recommendations : - Discharge patient to home. - Continue present medications. My findings are described in the full procedure note, which is enclosed. If I can be of further assistance, please feel free to contact me at . Sincerely, Figueroa Harrison, 10/31/2024 7:37:56 AM This report has been signed electronically.
--- NOTE | 2024-10-31 07:40 | OP.COLON_ITS ---
Patient Name: Efren Stevens Procedure Date: 10/31/2024 7:18 AM Date of : 1960 Age: 64 Procedure: Colonoscopy Indications: Screening for colorectal malignant neoplasm Providers: Figueroa Harrison DO Referring MD: Jose Petty MD Medicines: Monitored Anesthesia Care Patient Profile: This is a 64 year old male. Refer to note in patient chart for documentation of history and physical. Patient has symptoms of chronic dysphagia and dysphagia with both liquids and solids. Last Colonoscopy: 10 years ago. Complications: No immediate complications. Procedure: Pre-Anesthesia Assessment: - Prior to the procedure, a History and Physical was performed, and patient medications and allergies were reviewed. The patient is competent. The risks and benefits of the procedure and the sedation options and risks were discussed with the patient. All questions were answered and informed consent was obtained. Patient identification and proposed procedure were verified by the physician in the pre-procedure area. Mental Status Examination: alert and oriented. Airway Examination: normal oropharyngeal airway and neck mobility. Respiratory Examination: clear to auscultation. CV Examination: normal. Prophylactic Antibiotics: The patient does not require prophylactic antibiotics. Prior Anticoagulants: The patient has taken no anticoagulant or antiplatelet agents except for NSAID medication. ASA Grade Assessment: II - A patient with mild systemic disease. After reviewing the risks and benefits, the patient was deemed in satisfactory condition to undergo the procedure. The anesthesia plan was to use monitored anesthesia care (MAC). Immediately prior to administration of medications, the patient was re-assessed for adequacy to receive sedatives. The heart rate, respiratory rate, oxygen saturations, blood pressure, adequacy of pulmonary ventilation, and response to care were monitored throughout the procedure. The physical status of the patient was re-assessed after the procedure. After I obtained informed consent, the scope was passed under direct vision. Throughout the procedure, the patient's blood pressure, pulse, and oxygen saturations were monitored continuously. The colonoscope was introduced through the anus and advanced to the cecum, identified by appendiceal orifice and ileocecal valve. The colonoscopy was performed without difficulty. The patient tolerated the procedure well. The quality of the bowel preparation was fair. Scope In: 7:19:36 AM Scope Withdrawal Time 0 hours 10 minutes 35 seconds Scope Out: 7:32:56 AM Total Procedure Duration Time 0 hours 13 minutes 20 seconds Findings: The perianal and digital rectal examinations were normal. Stool was found in the ascending colon and in the cecum. Lavage of the area was performed, resulting in clearance with fair visualization. A few small and large-mouthed diverticula were found in the recto-sigmoid colon and sigmoid colon. The exam was otherwise without abnormality on direct and retroflexion views. Impression: - Preparation of the colon was fair. - Stool in the ascending colon and in the cecum. - Diverticulosis in the recto-sigmoid colon and in the sigmoid colon. - The examination was otherwise normal on direct and retroflexion views. - No specimens collected. Recommendation: - Discharge patient to home. - Resume previous diet. - Continue present medications. - Repeat colonoscopy for screening purposes. Procedure Code(s): --- Professional --- G0121, Colorectal cancer screening; colonoscopy on individual not meeting criteria for high risk CPT copyright 2021 [employer]. All rights reserved. The codes documented in this report are preliminary and upon weed burner review may be revised to meet current compliance requirements. Figueroa Harrison DO 10/31/2024 7:40:15 AM This report has been signed electronically. Number of Addenda: 0 Note Initiated On: 10/31/2024 7:18 AM
--- NOTE | 2024-10-31 07:40 | OP.CCLET_ITS ---
10/31/2024 Jose Petty MD [address] [place] [address] Re : Colonoscopy procedure for Efren Stevens Dear Dr. Petty This procedure was performed on Thursday, October 31, 2024. My impressions and recommendations are as follows: Impressions : - Preparation of the colon was fair. - Stool in the ascending colon and in the cecum. - Diverticulosis in the recto-sigmoid colon and in the sigmoid colon. - The examination was otherwise normal on direct and retroflexion views. - No specimens collected. Recommendations : - Discharge patient to home. - Resume previous diet. - Continue present medications. - Repeat colonoscopy for screening purposes. My findings are described in the full procedure note, which is enclosed. If I can be of further assistance, please feel free to contact me at . Sincerely, Figueroa Harrison, 10/31/2024 7:40:15 AM This report has been signed electronically.
--- NOTE | 2024-10-31 07:44 | PCM.POST.ANE ---
Anesthesia: Postop Eval I Current Vital Signs Temperature: 97 F Pulse Rate: 67 Blood Pressure: 104/75 Respiratory Rate: 18 Pulse Ox: 96 Oxygen Delivery Method: Room Air Assessment Airway patent: Yes Spontaneous unlabored respirations: Yes Mental status: Awake and Calm nausea: No Vomiting: No Anesthesia Complication: No Fluid Hydration Crystalloid volume administer (ml): 900 Total IV fluid infused: 900 Progress Note Anesthesia document: Postop Eval 1 completed: Yes
--- NOTE | 2024-10-31 08:01 | PCM.POSTANE2 ---
Anesthesia Postop Eval I Sum Postop Eval Completion status Anesthesia document: Postop Eval 1 completed: Yes Anesthesia Postop Eval I Summary Anesthesia Postop Eval I Summary: Anesthesia Postop Eval I: Assessment Summary Airway patent Yes 10/31/24 07:45 [email or web address] Spontaneous unlabored Yes 10/31/24 07:45 [email or web address] respirations Mental status Awake,Calm 10/31/24 07:45 [email or web address] nausea No 10/31/24 07:45 [email or web address] Vomiting No 10/31/24 07:45 [email or web address] Anesthesia Postop Eval I: Fluid Summary Crystalloid volume administer 900 10/31/24 07:45 [email or web address] (ml) Colloids volume administered ( ml) Blood Product volume administered (ml) Total IV fluid infused 900 10/31/24 07:45 [email or web address] Anesthesia Postop Eval I: Summary Notes Anesthesia Complication No 10/31/24 07:45 [email or web address] Anesthesia Complication Comment: Post-operative progress note Anesthesia: Postop Eval II Evaluation Mental status: Awake and Calm Pain Level: 0 nausea: No Vomiting: No Progress Note Post-operative progress note: uneventful endoscopy Complications Anesthesia Complication: No
== END 2024-10-31 08:20 | disposition home or self-care (01) ==
LOC: EN 05:02 → AC 05:05
PROVIDERS: PCP Family Medicine Geriatric Medicine; Referring Provider Family Medicine Geriatric Medicine; Visit Provider Internal Medicine Gastroenterology
PROC: 0DJD8ZZ Inspection of Lower Intestinal Tract, Via Natural or Artificial Opening Endoscopic (ICD-10-PCS; CPT 45378; principal; 2024-10-31 06:25)
DX: Z12.11 Encounter for screening for malignant neoplasm of colon (principal); K44.9 Diaphragmatic hernia without obstruction or gangrene; E78.5 Hyperlipidemia, unspecified; K57.30 Diverticulosis of large intestine without perforation or abscess without bleeding; K20.0 Eosinophilic esophagitis; K21.9 Gastro-esophageal reflux disease without esophagitis; J45.909 Unspecified asthma, uncomplicated; Z79.899 Other long term (current) drug therapy; F17.220 Nicotine dependence, chewing tobacco, uncomplicated; K31.A19 Gastric intestinal metaplasia without dysplasia, unspecified site; K29.80 Duodenitis without bleeding
CPT/HCPCS: 43248; 45378; 43239; 88305; 88312; 88342; C1769; J2405

== ENCOUNTER → 2024-11-08 | Outpatient (CLI) | payer OTHER, SELFPAY ==
--- NOTE | 2024-11-08 16:25 | RAD_ITS ---
PROCEDURE: CHEST PA AND LATERAL 11/08/2024 REASON FOR EXAM: WHEEZING TECHNIQUE: CHEST PA AND LATERAL COMPARISON: None FINDINGS: Left base subsegmental atelectasis. No focal consolidation. No pleural effusion or pneumothorax. Cardiac silhouette is within normal limits. No acute fractures. RAD/Chest PA and Lateral IMPRESSION: No focal consolidations. Reading Location: [id number]
== END | disposition home or self-care (01) ==
PROVIDERS: PCP Family Medicine Geriatric Medicine; Referring Provider Family Medicine Geriatric Medicine; Visit Provider Family Medicine Geriatric Medicine
DX: R06.2 Wheezing (principal)
CPT/HCPCS: 71046; 87631